=== PATIENT | female | born 1980 | race Caucasian/White ===

== ENCOUNTER 2023-08-30 21:06 | Outpatient (REF) | payer OTHER, SELFPAY ==
[2023-09-03 13:08] LABS: Age Gdln ACOG Testing Note (.); HPV Aptima Negative (Negative); IGP, Aptima HPV, rfx 16/18,45 Note (.)
== END 2023-08-30 21:07 | disposition home or self-care (01) ==
LOC: LAB 21:06
PROVIDERS: Visit Provider Obstetrics & Gynecology
DX: Z12.4 Encounter for screening for malignant neoplasm of cervix (principal)
CPT/HCPCS: 87624; G0145

== ENCOUNTER 2024-09-11 19:29 | Outpatient (REF) | payer OTHER, SELFPAY | END 2024-09-11 19:30 | disposition home or self-care (01) | LOC: LAB 19:29 | PROVIDERS: Visit Provider Obstetrics & Gynecology | DX: Z01.419 Encounter for gynecological examination (general) (routine) without abnormal findings (principal) | CPT/HCPCS: 87624; 88175 ==

== ENCOUNTER 2025-09-12 20:24 | Outpatient (REF) | payer OTHER, SELFPAY ==
--- OUTSIDE RECORDS SUMMARY | 2025-09-12 16:00 | XMS_ITS | Encounter Summary ---
Author Organization [facility] Address [address] [place] [address] Care Team Providers Care Forensic Scientist Name Role Phone Donny Hollingsworth MD Primary Care Provider [phone] Reason for Visit * ReasonCommentsWell Women Visit Encounter Details DateTypeDepartmentCare Team (Latest Contact Info)Dwzgyyekjfs36/22/2025 4:00 PM EDTOffice Visit [facility] [address] [place] [address] Dyllan Scott DO [address] [facility] [address] [place] Pearson, [facility]11 Well woman exam with routine gynecological exam; Breast cancer screening by mammogram Social History Tobacco UseTypesPacks/DayYears UsedDateSmoking Tobacco: FormerCigarettes1.520 Started: 10/02/1999Smokeless Tobacco: NeverAlcohol UseStandard Drinks/Week CommentsNot Currently0 (1 standard drink = 0.6 oz pure alcohol)B1300 Health LiteracyAnswerDate RecordedHow often do you need to have someone help you when you read instructions, pamphlets, or other written material from your doctor or pharmacy?Never03/09/2025Humiliation, Afraid, Rape, and Kick questionnaireAnswer Date RecordedWithin the last year, have you been afraid of your partner or ex-partner?No03/09/2025Within the last year, have you been humiliated or emotionally abused in other ways by your partner or ex-partner?No03/09/2025 Within the last year, have you been kicked, hit, slapped, or otherwise physically hurt by your partner or ex-partner?No03/09/2025Within the last year, have you been raped or forced to have any kind of sexual activity by your part ner or ex-partner?No03/09/2025Social Connection and Isolation PanelAnswerDate RecordedIn a typical week, how many times do you talk on the phone with family, friends, or neighbors?Never03/09/2025How often do you get together with friends or relatives?Never03/09/2025How often do you attend denominational or mormon services?1 to 4 times per year03/09/2025Do you belong to any clubs or organizations such as denominational groups, unions, fraternal or athletic groups, or school groups?Yes03/09/2025How often do you attend meetings of the clubs or organizations you belong to?1 to 4 times per year03/09/2025re you , , , , never , or living with a partner?Never nspujmo4503/09/2025UDIT-CAnswerDate RecordedQ1: How often do you have a drink containing alcohol?Never03/09/2025Q2: How many drinks containing alcohol do you have on a typical day when you are drinking?Patient does not drink03/09/2025Q3: How often do you have six or more drinks on one occasion?Never03/09/2025Overall Financial Resource Strain (CARDIA)AnswerDate RecordedHow hard is it for you to pay for the very basics like food, housing, medical care, and heating?Somewhat hard03/09/2025PHQ-2AnswerDate RecordedPatient Health Questionnaire-2 Score0 03/14/2025[facility] [place] of Occupational Health - Occupational Stress QuestionnaireAnswerDate RecordedDo you feel stress - tense, restless, nervous, or anxious, or unable to sleep at night because yourmind is troubled all the time - these days?Not at all03/09/2025Exercise Vital SignAnswerDate RecordedOn average, how many days per week do you engage in moderate to strenuous exercise (like a brisk walk)?1 day03/09/2025On average, how many minutes do you engage in exercise at this level?40 min03/09/2025Hunger Vital SignAnswerDate Recorded Within the past 12 months, you worried that your food would run out before you got the money to buymore.Never true03/09/2025Within the past 12 months, the food you bought just didn't last and you didn't have money to get more.Never true 03/09/2025PRAPARE - TransportationAnswerDate RecordedIn the past 12 months, has lack of transportation kept you from medical appointments or from getting medications?No03/09/2025In the past 12 months, has lack of transportation kept you from meetings, work, or from getting things needed for daily living?No 03/09/2025Housing Stability Vital SignAnswerDate RecordedIn the last 12 months, was there a time when you were not able to pay the mortgage or rent on time?Yes 12/20/2023In the last 12 months, how many places have you lived?In the last 12 months, was there a time when you did not have a steady place to sleep or slept in [facility] (including now)?No12/20/2023Housing Stability Vital SignAnswerDate RecordedIn the last 12 months, was there a time when you were not able to pay the mortgage or rent on time?Yes03/09/2025In the past 12 months, how many times have you moved where you were living?t any time in the past 12 months, were you homeless or living in a prison (including now)?No 03/09/2025CommentsNoSex and Gender InformationValueDate RecordedSex Assigned at AwxctFiwmxa77/31/2023 3:41 PM EDTLegal FazLhqkdn42/15/2023 6:36 PM EDTGender DhvhfscdKuupcj11/31/2023 3:41 PM EDTSexual OrientationNot on file documented as of this encounter Last Filed Vital Signs Vital SignReadingTime TakenCommentsBlood Ivfxnuia686/7009/12/2025 4:28 PM EDT Pulse--Temperature--Respiratory Rate--Oxygen Saturation--Inhaled Oxygen Concentration--Xfgjvb72.9 kg (171 lb 12.8 oz)09/12/2025 4:28 PM EDTHeight--Body Mass Index28.5909/ 3:40 PM EDTdocumented in this encounter Plan of Treatment DateTypeDepartmentCare Team (Latest Contact Info)Tettmyqmwzx15/18/2025 3:40 PM ESTOffice Visit [facility] [address] [facility] [address] [place] [address] Rl Thomas MD [address] [facility] [address] [place] [address] 09/18/2026 4:00 PM EDTProcedure Visit [facility] [address] [facility] [place] [address] Dyllan Scott DO [address] [facility] [place] [address] NameTypePriorityAssociated DiagnosesOrder ScheduleBilateral screening mammogram ImagingRoutine Breast cancer screening by mammogram Expected: 09/12/2025 (Approximate), Expires: 11/12/2026THIN PREP TIS PAP AND HR HPV DNAPathology and CytologyRoutine Well woman exam with routine gynecological exam Ordered: 09/12/2025documented as of this encounter Visit Diagnoses Diagnosis Well woman exam with routine gynecological exam Routine gynecological examination Breast cancer screening by mammogram documented in this encounter Care Teams Team MemberRelationshipSpecialtyStart DateEnd Date Donny Hollingsworth MD [address] [facility] [address] [place] [address] PCP - GeneralInternal Medicine03/30/23documented as of this encounter
--- OUTSIDE RECORDS SUMMARY | 2025-09-12 20:27 | XMS_ITS | Clinical Summary ---
Author Organization [facility] Address [address] [place] [address] Care Team Providers Care Network Professional Name Role Phone Donny Hollingsworth MD Primary Care Provider [phone] Allergies Active AllergyReactionsCriticalityNoted DateCommentsBiotinGI intolerance 05/17/2023 Other Reaction(s): Unknown Dwixyycach89/26/2023 Other Reaction(s): HIVES Medications MedicationSigDispense QuantityRefillsLast FilledStart DateEnd DateStatus cyanocobalamin (Vitamin B-12) 1000 MCG tablet every 12 (twelve) hours.Active Levonorgestrel (Mirena, 52 MG,) 20 MCG/DAY intrauterine device as directed IntrauterineActive saccharomyces boulardii (Florastor) 250 MG capsule Take 250 mg by mouth in the morning and 250 mg before bedtime.Active dexAMETHasone (Decadron) 2 MG tablet Indications:Intractable migraine with aura with status smpkjzkbqey1at 3 pills po X3 days,2 pills po daily X3 days , then 1 pill po daily X3 days then stop 9 days 18 pills 18 tablet ctive LORazepam (Ativan) 0.5 MG tablet Indications:Acute internal derangement of knee, rightTake 1 tablet (0.5 mg) by mouth See administration instructions for 10 days 1 by mouth 1 hour priorto MRI, may repeat X 1 dose 2 tablet 01/05/2024ctive levothyroxine (Synthroid, Levoxyl) 25 MCG tablet Indications:Hypothyroidism, unspecifiedTAKE 1 TABLET BY MOUTH DAILY 100 tablet ctive levothyroxine (Synthroid, Levoxyl) 200 MCG tablet Indications:Hypothyroidism, unspecifiedTAKE 1 TABLET BY MOUTH DAILY 100 tablet ctive Ubrogepant (Ubrelvy) 100 MG tablet Indications:Chronic migraine without aura, not intractable, without status migrainosusTake 100 mg by mouth 1 (one) time if needed (at the onset of migraine) MAY TAKE SECOND DOSE AT LEAST 2 HOURS AFTER FIRST DOSE NEEDED AT ONSET OF MIGRAINE. MAX 200MG/DAY 48 tablet 6Active tiZANidine (Zanaflex) 4 MG tablet Indications:Chronic migraine without aura, not intractable, without status migrainosusTAKE 2 TABLETS BY MOUTH AT BEDTIME 180 tablet 5Active Atogepant (Qulipta) 60 MG tablet Indications:Chronic migraine without aura, not intractable, without status migrainosusTake 1 tablet by mouth Daily 90 tablet ctive hydrocortisone (Anusol-HC) 2.5 % rectal cream Indications:Bleeding hemorrhoidInsert into the rectum 4 (four) times a day as needed for hemorrhoids (rectal discomfort) Apply to affected areas 30 g ctive topiramate (Topamax) 200 MG tablet Indications:Chronic migraine without aura, not intractable, without status migrainosusTake 1 tablet (200 mg) by mouth in the morning and 1 tablet (200 mg) before bedtime. 90 tablet 1105Active meloxicam (Mobic) 15 MG tablet Indications:Chronic migraine without aura, not intractable, without status migrainosusTake 1 tablet (15 mg) by mouth Daily 90 tablet 506Active dicyclomine (Bentyl) 20 MG tablet Indications:Irritable bowel syndrome with diarrheaTake 1 tablet (20 mg) by mouth every 6 (six) hours during the day 120 tablet 5Active Active Problems ProblemNoted DateDiagnosed ZqtcLsqwbdjf41/29/2023Muscle spasm08/20/2023cquired glskufpculsxmf04/26/2023cute confusional titnmgpl20/26/2023Migraine with aura 05/17/20232039Vrescc26/26/2023enign essential cvcrfjbcfgauf24/26/2023ile reflux lpbjhrlki92/26/2023rachial plexus bhrebbaibx71/26/2023hronic migraine without aura, not intractable, without status eafugtjymqh18/26/2023arpal tunnel syndrome of right wrist05/17/2023ifficulty in walking, not elsewhere classified 05/17/2023isturbance of skin /26/2023iverticulosis of colon 05/17/20235691Ktbyqgh57/26/2023Hashimoto's fraofvyqhbc05/26/2023Hiatal hernia 05/17/2023Irritable bowel syndrome with rnhqwyvn81/26/2023Mild intermittent asthma without /26/2023Mononeuropathy of right lower extremity 05/17/2023Morning xqgwvrus65/26/3371Hmknsod54/26/2023Other specific joint derangements of right foot, not elsewhere ncbaytgnra21/26/2023ain in right arm 05/17/20231388Wxvuhlg12/26/2023 Encounters DateTypeDepartmentCare YlwgXkxqqtyrwca69/22/2025 4:00 PM EDTOffice Visit [facility] [address] [facility] [place] [address] Dyllan Scott, Well woman exam with routine gynecological exam; Breast cancer screening by pistvavvq04/22/2025amb flowsheet [facility] [address] [facility] [address] Dyllan Scott, 09/05/20258790Yfdiqk51/15/2025 3:40 PM EDTOffice Visit [facility] [address] [place] [address] Rl Thomas MD Chronic migraine without aura, not intractable, without status migrainosus 08/06/2025Refill [facility] [address] [place] [address] Donny Hollingsworth MD Irritable bowel syndrome with rkxfiqsy37/15/2025amb flowsheet [facility] [address] [place] [address] Rl Thomas MD 08/06/20252445Siuost01/08/6798Eokvlq47/29/2025[facility] [address] [facility] [address] [place] [address] Donny Hollingsworth MD Irritable bowel syndrome with /28/2025Telephone [facility] [address] [facility] [address] [place] [address] Donny Hollingsworth MD from Last 3 Months Immunizations ImmunizationAdministration DatesNext DueInfluenza, injectable, quadrivalent 08/22/2021,08/25/2016Influenza, injectable, quadrivalent, preservative free 09/20/2023,09/04/2022,08/23/2021,09/14/2020,08/25/2016Influenza, seasonal, lmhlsazili85/23/2013Influenza, seasonal, injectable, preservative free10/20/2024 ,01/09/2016Influenza, seasonal, intradermal, preservative free09/20/2017, 10/09/2009 Family History Medical HistoryRelationNameCommentsAccidental deathBrotherStephen TollerDrug abuseBrotherStephen TollerHeart diseaseFatherTom TollerLung cancerFatherTom TollerHypertensionMaternal GrandmotherPatricia BallCancerMotherPatriciaDiabetes MotherPatriciaHeart diseaseMotherPatriciaHyperlipidemiaMotherPatricia HypertensionMotherPatriciaMental illnessMotherPatriciaStrokeMotherPatriciacancer MotherPatriciaMental illnessSiblingRelationNameStatusCommentsBrotherStephen Toller1 brotherFatherTom TollerAliveMaternal GrandmotherPatricia BallMother PatriciaAliveSiblingSister1 sister Social History Tobacco UseTypesPacks/DayYears UsedDateSmoking Tobacco: FormerCigarettes1.520 Started: 10/02/1999Smokeless Tobacco: NeverAlcohol UseStandard Drinks/Week CommentsNot Currently0 (1 standard drink = 0.6 oz pure alcohol)B1300 Health LiteracyAnswerDate RecordedHow often do you need to have someone help you when you read instructions, pamphlets, or other written material from your doctor or pharmacy?Never04/18/2025Humiliation, Afraid, Rape, and Kick questionnaireAnswer Date RecordedWithin [...] friends or relatives?Never03/09/2025How often do you attend restorationism or caodaism services?1 to 4 times per year03/09/2025Do you belong to any clubs or organizations such as restorationism groups, unions, fraternal or athletic groups, or school groups?Yes03/09/2025How often do you attend meetings of the clubs or organizations you belong to?1 to 4 times per year03/09/2025re you , , , , never , or living with a partner?Never aurxrmu3203/09/2025UDIT-CAnswerDate RecordedQ1: How often do you have a [...] and heating?Somewhat hard03/09/2025PHQ-2AnswerDate RecordedPatient Health Questionnaire-2 Score0 03/14/2025[facility] [place] of Occupational Health - Occupational Stress QuestionnaireAnswerDate [...] steady place to sleep or slept in [facility] (including now)?No12/20/2023Housing Stability Vital SignAnswerDate RecordedIn the last 12 months, was there a time when you were not able to pay the mortgage or rent on time?Yes03/09/2025In the past 12 months, how many times have you moved where you were living?t any time in the past 12 months, were you homeless or living in a long-term (including now)?No 03/09/2025CommentsNoSex and Gender InformationValueDate RecordedSex Assigned at XrjtbCxbqxo33/31/2023 3:41 PM EDTLegal GnjYdrmik96/15/2023 6:36 PM EDTGender LdlxsszlDwlcel54/31/2023 3:41 PM EDTSexual OrientationNot on file Last Filed Vital Signs Vital SignReadingTime TakenCommentsBlood Zxsueiru656/7009/12/2025 4:28 PM EDT Liclh9783 8:34 AM EDTTemperature--Respiratory Qfho678808/06/2025 3:40 PM EDTOxygen Nlofkadspa27%08/06/2025 3:40 PM EDTInhaled Oxygen Concentration-- Emclfs11.9 kg (171 lb 12.8 oz)09/12/2025 4:28 PM PQRXuravk080.1 cm (5' 5 ) 08/06/2025 3:40 PM EDTBody Mass Index28.59008/06/2025 3:40 PM EDT Plan of Treatment DateTypeDepartmentCare Team (Latest Contact Info)Zvxprijbeub93/18/2025 3:40 PM ESTOffice Visit [facility] [address] [facility] [place] [address] Rl Thomas MD [address] [facility] [address] [place] [address] 09/18/2026 4:00 PM EDTProcedure Visit [facility] [address] [facility] [address] Dyllan Scott DO [address] [facility] [place] [address] Health MaintenanceDue DateLast DoneCommentsInfluenza Vaccine (#1)07/23/2025 10/20/2024, 09/20/2023, 09/04/2022, Additional history fujfnhThoompzbr81/25/2026 03/16/2025, 01/12/2024HPV/Qoxyaf6508/24/2027Cervical Cancer Qdmrytytf08/21/2027Pap Smear, 08/30/2023, 08/24/2022 Procedures Procedure NamePriorityDate/TimeAssociated DiagnosisCommentsBI MAMMOGRAM SCREENING TOMOSYNTHESIS PPGQWHZIETchquqa60/25/2025 2:48 PM EDT Encounter for screening mammogram for breast cancer PAP ASBMOXhklmgs88/21/2024 12:00 AM EDTfrom Last 3 Months or Most Recently Relevant to Health Maintenance Results * Bilateral screening mammogram with tomosynthesis (03/16/2025 2:48 PM EDT) Anatomical RegionLateralityModalityBreastBilateralMammographySpecimen (Source) Anatomical Location / LateralityCollection Method / VolumeCollection Time Received Time03/18/2025 9:41 AM EDT Impressions 03/18/2025 9:47 AM EDT Impression: No specific evidence of malignancy seen in either breast. BIRADS 2 - Benign Findings DENSITY: There are scattered areas of fibroglandular density. FOLLOW-UP: Routine Screening Mammogram ELECTRONICALLY SIGNED BY: Devonte Miguel M.D. Narrative 03/18/2025 9:47 AM EDT Examination: BI MAMMOGRAM SCREENING TOMOSYNTHESIS BILATERAL Clinical History: screening Technique: Screening digital mammography study of both breasts was performed with 2-D and 3-D tomosynthesis imaging. Study was compared to the prior exam dated 01/12/2024. Findings: There is no evidence of interval dominant spiculated mass, grouped microcalcifications, or skin thickening which would be suggestive of malignancy. ?? A few benign-appearing calcifications are seen on the left. Procedure Note Devonte Miguel MD - 03/18/2025 Examination: BI MAMMOGRAM SCREENING TOMOSYNTHESIS BILATERAL Clinical History: screening Technique: Screening digital mammography study of both breasts wasperformed with 2-D and 3-D tomosynthesis imaging. Study was compared tothe prior exam dated 01/12/2024. Findings: There is no evidence of interval dominant spiculated mass,grouped microcalcifications, or skin thickening which would be suggestiveof malignancy. A few benign-appearing calcifications are seen on the left. IMPRESSION: Impression: No specific evidence of malignancy seen in either breast. BIRADS 2 - Benign Findings DENSITY: There are scattered areas of fibroglandular density. FOLLOW-UP: Routine Screening Mammogram ELECTRONICALLY SIGNED BY: Devonte Miguel M.D. Authorizing ProviderResult TypeResult StatusDaalondra Hollingsworth MDIMG BI PROCEDURES Final Result * Pap Smear (09/11/2024 12:00 AM EDT)Specimen (Source)Anatomical Location / LateralityCollection Method / VolumeCollection TimeReceived TimeSwabCervical swab / Unknown Narrative Authorizing ProviderResult TypeResult StatusFazio Nurse [facility] CYTOLOGY ORDERABLESFinal ResultPerforming OrganizationAddressCity/State/ZIP CodePhone Number EXTERNAL LAB from Last 3 Months or Most Recently Relevant to Health Maintenance Insurance Care Teams Team MemberRelationshipSpecialtyStart DateEnd Date Donny Hollingsworth MD [address] [address] PCP - GeneralInternal Medicine03/30/23
--- OUTSIDE RECORDS SUMMARY | 2025-09-12 20:27 | XMS_ITS | Encounter Summary ---
Author Organization [facility] Address [address] [place] [address] Care Team Providers Care Pipe Turner Name Role Phone Donny Hollingsworth MD Primary Care Provider [phone] Encounter Details DateTypeDepartmentCare Team (Latest Contact Info)Qwxeiewtmgu94/15/2025Travel Social History Tobacco UseTypesPacks/DayYears UsedDateSmoking Tobacco: FormerCigarettes1.520 [...] friends or relatives?Never03/09/2025How often do you attend jewish or spiritism services?1 to 4 times per year03/09/2025Do you belong to any clubs or organizations such as jewish groups, unions, fraternal or athletic groups, or school groups?Yes03/09/2025How often do you attend meetings of the clubs or organizations you belong to?1 to 4 times per year03/09/2025re you , , , , never , or living with a partner?Never dgtemmu2603/09/2025UDIT-CAnswerDate RecordedQ1: How often do you have a [...] and heating?Somewhat hard03/09/2025PHQ-2AnswerDate RecordedPatient Health Questionnaire-2 Score0 03/14/2025[facility] [place] of Occupational Health - Occupational Stress QuestionnaireAnswerDate [...] steady place to sleep or slept in [place] (including now)?No12/20/2023Housing Stability Vital SignAnswerDate RecordedIn the last 12 months, was there a time when you were not able to pay the mortgage or rent on time?Yes03/09/2025In the past 12 months, how many times have you moved where you were living?t any time in the past 12 months, were you homeless or living in a detention (including now)?No 03/09/2025CommentsNoSex and Gender InformationValueDate RecordedSex Assigned at FhmsgPombmv59/31/2023 3:41 PM EDTLegal KlcCobeyw38/15/2023 6:36 PM EDTGender WaodifsfGnqeqk28/31/2023 3:41 PM EDTSexual OrientationNot on file documented as of this encounter Plan of Treatment DateTypeDepartmentCare Team (Latest Contact Info)Utnfccalltf64/18/2025 3:40 PM ESTOffice Visit [facility] [address] [place] [address] Rl Thomas MD [address] [facility] [address] [facility] [place] [address] 09/18/2026 4:00 PM EDTProcedure Visit [facility] [address] [facility] [place] [address] Dyllan Scott, [address] [facility] [place] [address] documented as of this encounter Visit Diagnoses Not on filedocumented in this encounter Care Teams Team MemberRelationshipSpecialtyStart DateEnd Date Donny Hollingsworth MD [address] [address] PCP - GeneralInternal Medicine03/30/23documented as of this encounter
--- OUTSIDE RECORDS SUMMARY | 2025-09-12 20:27 | XMS_ITS | Encounter Summary ---
Author Organization [facility] Address [address] [place] [address] Care Team Providers Care Sheriffs Detective Name Role Phone Donny Hollingsworth MD Primary Care Provider [phone] Encounter Details DateTypeDepartmentCare Team (Latest Contact Info)Xucmszfvuwq30/22/2025amboo flowsheet [facility] [address] [place] [address] Dyllan Scott DO [address] [facility] [address] [place] [place], [facility] Social History Tobacco UseTypesPacks/DayYears UsedDateSmoking Tobacco: FormerCigarettes1.520 [...] friends or relatives?Never03/09/2025How often do you attend oriental orthodox or yazdanism services?1 to 4 times per year03/09/2025Do you belong to any clubs or organizations such as oriental orthodox groups, unions, [employer] or athletic groups, or school groups?Yes03/09/2025How often do you attend meetings of the clubs or organizations you belong to?1 to 4 times per year03/09/2025re you , , , , never , or living with a partner?Never akiexul7003/09/2025UDIT-CAnswerDate RecordedQ1: How often do you have a [...] and heating?Somewhat hard03/09/2025PHQ-2AnswerDate RecordedPatient Health Questionnaire-2 Score0 03/14/2025[facility] - Occupational Stress QuestionnaireAnswerDate [...] steady place to sleep or slept in [facility] (including now)?No12/20/2023Housing Stability Vital SignAnswerDate RecordedIn the last 12 months, was there a time when you were not able to pay the mortgage or rent on time?Yes03/09/2025In the past 12 months, how many times have you moved where you were living?t any time in the past 12 months, were you homeless or living in a penitentiary (including now)?No 03/09/2025CommentsNoSex and Gender InformationValueDate RecordedSex Assigned at QmlchSzhmrb81/31/2023 3:41 PM EDTLegal BjkPdnqgx48/15/2023 6:36 PM EDTGender TxlxvdwhJtupzr70/31/2023 3:41 PM EDTSexual OrientationNot on file documented as of this encounter Plan of Treatment DateTypeDepartmentCare Team (Latest Contact Info)Oypckctdlin61/18/2025 3:40 PM ESTOffice Visit [facility] [address] [place] [address] Rl Thomas MD [address] [facility] [address] [place] [id number] 09/18/2026 4:00 PM EDTProcedure Visit [facility] [address] [facility] [place] [address] Dyllan Scott DO [address] [facility] [place] [address] documented as of this encounter Visit Diagnoses Not on filedocumented in this encounter Care Teams Team MemberRelationshipSpecialtyStart DateEnd Date Donny Hollingsworth MD [address] [facility] [address] [place] [address] PCP - GeneralInternal Medicine03/30/23documented as of this encounter
--- OUTSIDE RECORDS SUMMARY | 2025-09-12 20:27 | XMS_ITS | CCD ---
Author Organization [facility] Care Team Providers Care Dashboard Developer Name Role Phone DR ANKITA SCOTT Admitting Unavailable DR ANKITA SCOTT Attending Unavailable DR ANKITA SCOTT Consulting Unavailable Donny Hollingsworth MD Primary Care Provider ROSENDA PALOMINO Attending Unavailable DONNY HOLLINGSWORTH Attending Unavailable ANKITA SCOTT Attending Unavailable EMILY THOMAS Attending Unavailable DONNY HOLLINGSWORTH Referring Unavailable EMILY THOMAS Attending Unavailable Allergies Allergy ClassificationReported Allergen(s)Allergy TypeDate of OnsetReaction(s) Facility (1 source)ColestipolDrug Tftbccu88-76-2397OozThe [facility] (1 source)IbuprofenDrug Ytwutfz09-47-6098AabThe [facility] (3 sources)Acetaminophen / CaffeineDrug Ztyraao62-39-8954[facility] (20 sources)BiotinDrug Ceuvtng55-24-0428TB intoleranceLake Regional Health System (20 sources)ColestipolDrug Ysrxoyb22-31-3266UV[facility] (3 sources)IbuprofenDrug Xuosuaf28-81-9835TH[facility] Medications Current Medications MedicationDrug Class(es)DatesSig (Normalized)Sig (Original)Atogepant (Qulipta) 60 MG tablet (9 sources)Start: 02-02-2025 End: 58-56-5320wqum 1 tablet by mouth once dailyAtogepant (Qulipta) 60 MG tablet Indications: Chronic migraine without aura, not intractable, without status migrainosus Take 1 tablet by mouth Daily 90 tablet 2 02/02/2025 02/02/2026 ActiveStart: 02-02-2025 End: 92-03-1627gios 1 tablet by mouth once dailyAtogepant (Qulipta) 60 MG tablet Indications: Chronic migraine without aura, not intractable, without status migrainosus (CMS/HCC) Take 1 tablet by mouth Daily 90 tablet 2 02/02/2025 02/02/2026 Activedexamethasone 2 mg oral tablet (19 sources)CorticosteroidStart: 12-15-2023 End: 70-41-4446srxIRNWDxfkyt (Decadron) 2 MG tablet Indications: Intractable migraine with aura with status migrainosus 2mg 3 pills po X3 days,2 pills po daily X3 days , then 1 pill po daily X3 days then stop 9 days 18 pills 18 tablet 1 12/15/2023 Activedicyclomine hydrochloride 20 mg oral tablet (20 sources)AnticholinergicStart: 07-20-2025 End: 86-34-3173uwxr 1 tablet by mouth every six hoursdicyclomine (Bentyl) 20 MG tablet Indications: Irritable bowel syndrome with diarrhea Take 1 tablet(20 mg) by mouth every 6 (six) hours during the day 120 tablet 3 08/06/2025 ActiveStart: 83-82-9314kurf 1 tablet by mouth every six hoursdicyclomine (Bentyl) 20 MG tablet Indications: Irritable bowel syndrome with diarrhea Take 1 tablet(20 mg) by mouth every 6 (six) hours during the day 42 tablet 11 03/14/2025 ActiveStart: 02-12-2025 End: 07-92-3702ykdq 1 tablet by mouth three times dailydicyclomine (Bentyl) 20 MG tablet Indications: Irritable bowel syndrome with diarrhea TAKE 1 TABLETBY MOUTH THREE TIMES DAILY 42 tablet 02/12/2025 03/14/2025 Discontinued (Reorder) Start: 07-19-2023 End: 97-81-1344syxp 1 tablet by mouth in the morning, then take 1 tablet by mouth in the evening, then take 1 tablet by mouth at bedtimedicyclomine (Bentyl) 20 MG tablet Indications: Irritable bowel syndrome with diarrhea Take 1 tablet (20 mg) by mouth in the morning and 1 tablet (20 mg) in the evening and 1 tablet (20 mg) before bedtime. 270 tablet 3 12/23/2023 Activeeletriptan 40 mg oral tablet (12 sources)Serotonin-1b and Serotonin-1d Receptor AgonistStart: 06-15-2024 eletriptan (Relpax) 40 MG tablet Indications: Acute sinusitis, recurrence not specified, unspecified location , Chronic migraine without aura, not intractable, without status migrainosus (CMS/HCC) Take 1 tablet (40 mg) by mouth See administration instructions TAKE 1 TABLET BY MOUTH at onset OF migraine, may repeat once after 2 HOURS (max TWICE DAILY, TWICE A WEEK) MUST LAST 30 DAYS 6 tablet 3 06/15/2024 ActiveStart: 04-09-2023 End: 51-17-2046frwubnvxcc (Relpax) 40 MG tablet Indications: Chronic migraine without aura, not intractable, without status migrainosus (CMS/HCC) Take 1 tablet (40 mg) by mouth See administration instructions TAKE 1 TABLET BY MOUTH at onset OF migraine, may repeat once after 2 HOURS (max TWICE DAILY, TWICE A WEEK) MUST LAST 30 DAYS 6 tablet 3 12/21/2023 Activeerythromycin ethylsuccinate 400 mg oral tablet (2 sources)Macrolide, Macrolide AntimicrobialStart: 12-23-2023 End: 40-54-2514smrqdyimwehh ethylsuccinate (E.E.S.) 400 MG tablet Indications: Acute sinusitis, recurrence not specified, unspecified location Take 1 tablet (400 mg) by mouth in the morning and 1 tablet (400 mg) atnoon and 1 tablet (400 mg) in the evening and 1 tablet (400 mg) before bedtime. Do all this for 10 d ays. 40 tablet 0 12/23/2023 01/02/2024 Activehydrocortisone 25 mg/ml rectal cream (4 sources)CorticosteroidStart: 07-19-2025 End: 50-08-8072zaeblokvmystik (Anusol-HC) 2.5 % rectal cream Indications: Bleeding hemorrhoid Insert into the rectum 4 (four) times a day as needed for hemorrhoids (rectal discomfort) Apply to affected areas 30 g 07/19/2025 07/19/2026 Activelevonorgestrel 0.500586 mg/hr intrauterine system (20 sources)Progestin, Progestin-containing Intrauterine DeviceLevonorgestrel (Mirena, 52 MG,) 20 MCG/DAY intrauterine device as directed Intrauterine Active levothyroxine sodium 0.2 mg oral tablet (20 sources)l-ThyroxineStart: 10-05-2023 End: 92-91-7824nvnp 1 tablet by mouth once dailylevothyroxine (Synthroid, Levoxyl) 200 MCG tablet Indications: Hypothyroidism, unspecified TAKE 1 TABLET BY MOUTH DAILY 100 tablet 3 10/09/2024 ActiveStart: 10-05-2023 End: 93-17-5894gtie 1 tablet by mouth once dailylevothyroxine (Synthroid, Levoxyl) 25 MCG tablet Indications: Hypothyroidism, unspecified TAKE 1 TABLET BY MOUTH DAILY 100 tablet 3 10/09/2024 ActiveLORazepam 0.5 mg oral tablet (16 sources)BenzodiazepineStart: 61-57-2082HVOqrsums (Ativan) 0.5 MG tablet Indications: Acute internal derangement of knee, right Take 1 tablet (0.5 mg) by mouth See administration instructions for 10 days 1 by mouth 1 hour prior to MRI, mayrepeat X 1 dose 2 tablet 01/05/2024 Activemeloxicam 15 mg oral tablet (17 sources)Nonsteroidal Anti-inflammatory DrugStart: 02-02-2025 End: 28-84-6456wlzf 1 tablet by mouth once dailymeloxicam (Mobic) 15 MG tablet Indications: Chronic migraine without aura, not intractable, withoutstatus migrainosus Take 1 tablet (15 mg) by mouth Daily 90 tablet 3 08/06/2025 08/06/2026 ActiveStart: 16-77-2862ktza 1 tablet by mouth once dailymeloxicam (Mobic) 15 MG tablet Indications: Difficulty in walking, not elsewhere classified , Disturbance of skin sensation TAKE 1 TABLET BY MOUTH DAILY 30 tablet 2 01/13/2025 ActiveStart: 10-03-2024 End: 85-21-6226tbbm 1 tablet by mouth once dailymeloxicam (Mobic) 15 MG tablet Indications: Difficulty in walking, not elsewhere classified , Disturbance of skin sensation TAKE 1 TABLET BY MOUTH DAILY 30 tablet 2 10/03/2024 01/13/2025 DiscontinuedStart: 06-15-2024 End: 02-14-4475qlsr 1 tablet by mouth once dailymeloxicam (Mobic) 15 MG tablet Indications: Difficulty in walking, not elsewhere classified , Disturbance of skin sensation Take 1 tablet (15 mg) by mouth Daily 30 tablet 2 06/15/2024 09/13/2024 ActiveQulipta 60 MG tablet (7 sources)Start: 09-27-2024 End: 94-26-3333znsz 1 tablet by mouth once dailyQulipta 60 MG tablet Indications: Acute sinusitis, recurrence not specified, unspecified location , Chronic migraine without aura, not intractable, without status migrainosus (CMS/HCC) TAKE 1 TABLET BY MOUTH DAILY 90 tablet 1 09/27/2024 12/26/2024 Active take 1 tablet by mouth in the morningQulipta 60 MG tablet Take 1 tablet by mouth in the morning. 0 Activesaccharomyces boulardii 250 mg oral capsule (20 sources)take 1 capsule by mouth in the morningsaccharomyces boulardii (Florastor) 250 MG capsule Take 250 mg by mouth in the morning and 250 mg before bedtime. ActivetiZANidine 4 mg oral tablet (20 sources)Central alpha-2 Adrenergic AgonistStart: 27-86-3139xjwp 2 tablets by mouth at bedtimetiZANidine (Zanaflex) 4 MG tablet Indications: Chronic migraine without aura, not intractable, without status migrainosus TAKE 2 TABLETS BY MOUTH AT BEDTIME 180 tablet 3 02/02/2025 ActiveStart: 45-34-7705skxo 2 tablets by mouth at bedtimetiZANidine (Zanaflex) 4 MG tablet Indications: Insomnia, unspecified type , Muscle spasm , Intractable migraine with aura with status migrainosus (CMS/HCC) TAKE 2 TABLETS BY MOUTH AT BEDTIME 60 tablet 2 01/13/2025 ActiveStart: 06-15-2024 End: 74-02-9292npgw 2 tablets by mouth at bedtimetiZANidine (Zanaflex) 4 MG tablet Indications: Insomnia, unspecified type , Muscle spasm , Intractable migraine with aura with status migrainosus (CMS/HCC) TAKE 2 TABLETS BY MOUTH AT BEDTIME 60 tablet 2 10/03/2024 01/13/2025 DiscontinuedStart: 08-19-2023 End: 19-87-2508zsnk 1 tablet by mouth at bedtimetiZANidine (Zanaflex) 4 MG tablet Indications: Insomnia, unspecified type , Muscle spasm , Intractable migraine with aura with status migrainosus (CMS/HCC) Take 1 tablet (4 mg) by mouth at bedtime. 30 tablet 11 08/19/2023 08/18/2024 Activetopiramate 200 mg oral tablet (20 sources)Start: 04-02-2025 End: 70-53-4532jpsa 1 tablet by mouth in the morningtopiramate (Topamax) 200 MG tablet Indications: Chronic migraine without aura, not intractable, without status migrainosus Take 1 tablet (200 mg) by mouth in the morning and 1 tablet (200 mg) before bedtime. 90 tablet 11 08/06/2025 ActiveStart: 06-16-2023 End: 21-89-9765gexe 1 tablet by mouth in the morning, then take 2 tablets by mouth at bedtimetopiramate (Topamax) 200 MG tablet Indications: Chronic migraine without aura, not intractable, without status migrainosus (CMS/HCC) TAKE 1 TABLET BY MOUTH IN THE MORNING and TAKE 2 TABLETS BY MOUTH AT BEDTIME 90 tablet 11 06/02/2024 ActiveStart: 82-46-8414ohnb 2 tablets by mouth at bedtime topiramate (Topamax) 200 MG tablet Take 200 mg by mouth See administration instructions. TAKE 1 TABLET BY MOUTH IN THE MORNING, then TAKE 2 TABLETS AT BEDTIME 04/18/2023 Activeubrogepant 100 mg oral tablet (20 sources)Start: 02-02-2025 End: 33-99-7596Pylwbpeylq (Ubrelvy) 100 MG tablet Indications: Chronic migraine without aura, not intractable, without status migrainosus Take 100 mg by mouth 1 (one) time if needed (at the onset of migraine) MAY TAKE SECOND DOSE AT LEAST 2 HOURS AFTER FIRST DOSE NEEDED AT ONSET OF MIGRAINE. MAX 200MG/DAY 48 tablet 3 02/02/2025 02/02/2026 ActiveStart: 48-21-3188Gynjpwfqct (Ubrelvy) 100 MG tablet Indications: Acute sinusitis, recurrence not specified, unspecified location , Chronic migraine without aura, not intractable, without status migrainosus (CMS/HCC) Take 100 mg by mouth 1 (one) time if needed (at the onset of migraine) for up to 1 dose MAY TAKE SECOND DOSE AT LEAST 2 HOURS AFTER FIRST DOSE NEEDED AT ONSET OF MIGRAINE. MAX 200MG/DAY 16 tablet 11 03/16/2024 ActiveStart: 05-00-5404Uzkdbqr 100 MG tablet See administration instructions. TAKE 1 TABLET BY MOUTH . MAY TAKE SECOND DOSE AT LEAST 2 HOURS AFTER FIRST DOSE NEEDED AT ONSET OF MIGRAINE. MAX 200MG/DAY 0 03/17/2023 Activevitamin b12 1 mg oral tablet (20 sources)Vitamin M95idtskdlswmkrci (Vitamin B-12) 1000 MCG tablet every 12 (twelve) hours. Active Problems Active Problems Problem ClassificationProblemDateDocumented DateEpisodic/ChronicAsthma (20 sources)Asthma; Translations: [Unspecified asthma, uncomplicated]Onset: 786427-47-3404UckbwhjCjgtxgfzlhkyvd and diverticulitis (20 sources)Diverticulosis of colon; Translations: [Diverticulosis of large intestine without perforation or abscess without bleeding]Onset: 05-17-2023 01-71-5401ImibybpTkwntvdz; including migraine (20 sources)Acute confusional migraine; Translations: [Migraine, unspecified, not intractable, without status migrainosus]Onset: hronic Immunizations and screening for infectious disease (1 source)Encounter for screening for human papillomavirus (HPV); Translations: [ENC SCREENING HUMAN PAPILLOMAVIRUS]Onset: 93-61-8374JoicqccpQpvjw gastrointestinal disorders (20 sources)Irritable bowel syndrome with diarrhea; Translations: [Irritable bowel syndrome with diarrhea]Onset: 293615-41-2567EyefeocOtfih hereditary and degenerative nervous system conditions (20 sources)Blepharospasm; 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]Onset: 05-17-2023 30-85-2353PfggoulSrwqc nervous system disorders (20 sources)Brachial plexus disorder; Translations: [Brachial plexus disorders] Onset: 634508-83-7373UozrzgnPqccw nervous system disorders (20 sources)Carpal tunnel syndrome of right wrist; Translations: [Carpal tunnel syndrome, right upper limb]Onset: 789879-79-3815UisqqhrQzvyf nervous system disorders (20 sources)Difficulty walking; Translations: [Difficulty in walking, not elsewhere classified]Onset: 497643-63-2101IvsvlklDrjxq nervous system disorders (20 sources)Mononeuropathy of lower limb; Translations: [Unspecified mononeuropathy of right lower limb]Onset: 008464-94-1344SjrhkmrSdxse non- traumatic joint disorders (12 sources)Joint derangement; Translations: [Other specific joint derangements of right foot, not elsewhere classified]Onset: 321910-40-1501RyxfapiXykep non-traumatic joint disorders (9 sources)Other specific joint derangements of right foot, not elsewhere classified; Translations: [Other joint derangement, not elsewhere classified, ankle and foot]Onset: 293977-69-8784XyjofroWgghb non-traumatic joint disorders (2 sources)Effusion of right knee joint; Translations: [Effusion, right knee] 11-84-8195LhyiudtkOxygk nutritional; endocrine; and metabolic disorders (20 sources)Obesity; Translations: [Obesity, unspecified]Onset: 05-17-2023 38-93-4926VswdiubJjwxz screening for suspected conditions (not mental disorders or infectious disease) (6 sources)Encounter for screening for malignant neoplasm of cervix; Translations: [Patient encounter status]Onset: 38-96-0284CbzneeqfIsmfh upper respiratory infections (2 sources)Acute sinusitis; Translations: [Acute sinusitis, unspecified] 05-09-6322HuvtqwzeZxzinuv disorders (20 sources)Acquired hypothyroidism; Translations: [Hypothyroidism, unspecified] Onset: hronic Past or Other Problems Problem ClassificationProblemDateDocumented DateEpisodic/ChronicAbdominal hernia (20 sources)Hiatal hernia; Translations: [Diaphragmatic hernia without obstruction or gangrene]Onset: 534649-79-7484LykoogucZkwgdgtqk and duodenitis (20 sources)Bile-induced gastritis; Translations: [Other gastritis without bleeding]Onset: 636581-54-1519FbxrfyfxJlwmjseu; including migraine (20 sources)Morning headache; Translations: [Morning headache]Onset: 05-17-2023 68-52-2148SsdaoqnsUacilnc and fatigue (20 sources)Fatigue; Translations: [Other fatigue]Onset: EpisodicOther connective tissue disease (20 sources)Pain in right arm; Translations: [Pain in right arm]Onset: 072190-26-7932ApydrrewGprga connective tissue disease (20 sources)Spasm; Translations: [Other muscle spasm]Onset: 806881-09-6647 EpisodicOther lower respiratory disease (20 sources)Snoring; Translations: [Snoring]Onset: 651203-26-1747Qrfukmey Other nervous system disorders (20 sources)Skin sensation disturbance; Translations: [Unspecified disturbances of skin sensation]Onset: 507532-11-1917DdqplmemKtvlwaaq codes; unclassified (20 sources)Insomnia; Translations: [Insomnia, unspecified]Onset: 08-20-2023 52-81-6530Jtlemekv Results Test NameValueInterpretationReference RangeFacilityCELIAC DISEASE COMPREHENSIVE PANELon 87-52-9525CIYYEULPWNAYWD A122 mg/xQPqmfbo40-056Aulqn DiagnosticsComment on above:Order Comment: FASTING:NO FASTING: NOPerformed By: #### #### [facility]/[place] [id number] [facility] [address] [place], [place] Driver: Toño Heard M.D.,PhDINTERPRETATIONsee noteNormalQuest DiagnosticsComment on above:Order Comment: FASTING:NO FASTING: NOResult Comment: No serological evidence of celiac disease. tTG IgA may normalize in individuals with celiac disease who maintain a gluten-free diet. Consider HLA DQ2 and DQ8 testing to rule out celiac disease. Celiac disease is extremely rare in the absence of DQ2 or DQ8.Performed By: #### #### [facility]/[place] [id number] [facility] [address] [place], [place] Driver: Toño Heard M.D.,PhDTISSUE TRANSGLUTAMINASE AB, IGA<1.0 Normal<15.0Quest DiagnosticsComment on above:Order Comment: FASTING:NO FASTING: NOResult Comment: Value Interpretation <15.0 Antibody not detected > or = 15.0 Antibody detectedPerformed By: #### #### [facility]/[place] [id number] [facility] [address] [place], [place] Driver: Toño Heard M.D.,PhDCelia panel reflex to titeron 75-30-5936IaT [Mass/Vol]122 mg/dL47 - 310 mg/dLNOIL HealthcareLaboratory comment Swapnil (Report)see noteNOIL HealthcareComment on above:No serological evidence of celiac disease. tTG IgA may normalize in individuals with celiac disease who maintain a gluten-free diet. Consider HLA DQ2 and DQ8 testing to rule out celiac disease. Celiac disease is extremely rare in the absence of DQ2 or DQ8. tTG IgA Qn (S)<1.0NINF - 15.0 U/mLNOKLAHOMA HOSPITAL ASSOCIATION HealthcareComment on above: Value Interpretation <15.0 Antibody not detected > or = 15.0 Antibody detected FASTING:NO FASTING: NOQUESTPerforming Organization Information Site ID: AMD Name: [facility] Address: [address] [place] [address] [place] [address] Director: Toño Heard M.D.,PhDSampson Regional Medical Center MAMMOGRAM SCREENING TOMOSYNTHESIS BILATERALon 10-45-6698VF MAMMOGRAM SCREENING TOMOSYNTHESIS BILATERALThis is a summary report. The complete report is available in the patient's medical record. If you cannot access the medical record, please contact the sending organization for a detailed fax or copy. Examination: BI MAMMOGRAM SCREENING TOMOSYNTHESIS BILATERAL Clinical History: screening Technique: Screening digital mammography study of both breasts was performed with 2-D and 3-D tomosynthesis imaging. Study was compared to the prior exam dated 01/12/2024. Findings: There is no evidence of interval dominant spiculated mass, grouped microcalcifications, or skin thickening which would be suggestive of malignancy. A few benign-appearing calcifications are seen on the left. IMPRESSION: Impression: No specific evidence of malignancy seen in either breast. BIRADS 2 - Benign Findings DENSITY: There are scattered areas of fibroglandular density. FOLLOW-UP: Routine Screening Mammogram ELECTRONICALLY SIGNED BY: Devonte Miguel M.D.NormalNot AvailableCBC (INCLUDES DIFF/PLT)on 27-30-9974Nuemierhr (Bld) [#/Vol]0 10*3/uLNormal0-200Quest DiagnosticsComment on above:Performed By: #### 64524, 6399, 7600, 899, 91081 #### [facility] of [place] [address] [place] [address] Driver: Sulaiman Funez MDBasophils/100 WBC (Bld)0.0 %NormalQuest DiagnosticsComment on above:Performed By: #### 79220, 6399, 7600, 899, 10808 #### [facility] of [place] [address] [place] [address] Driver: Sulaiman Funez MDEosinophils (Bld) [#/Vol]0.12 10*3/uLNormal 15-500Quest DiagnosticsComment on above:Performed By: #### 59645, 6399, 7600, 899, 30355 #### [facility] of [place] [address] [address] [address] Driver: Sulaiman Funez MDEosinophils/100 WBC (Bld)2.6 %NormalQuest DiagnosticsComment on above:Performed By: #### 28027, 6399, 7600, 899, 12639 #### [facility] of [place] [address] [address] [address] Driver: Sulaiman Funez MDErythrocyte distribution width (RBC) [Ratio] 12.1 %Ooxthp03.0-15.0Quest DiagnosticsComment on above:Performed By: #### 12837, 6399, 7600, 899, 33547 #### [facility] of [place] [address] [place] [employer] Driver: Sulaiman Funez MDHematocrit (Bld) [Volume fraction]42.2 %Normal 35.0-45.0Quest DiagnosticsComment on above:Performed By: #### 86774, 6399, 7600, 899, 23240 #### [facility] of [place] [address] [address] [address] Driver: Sulaiman Funez MDHemoglobin (Bld) [Mass/Vol]14.1 g/dLNormal 11.7-15.5Quest DiagnosticsComment on above:Performed By: #### 26864, 6399, 7600, 899, 98466 #### [facility] of [address], [address] [place] [address] [employer] Driver: Sulaiman Funez MDLymphocytes (Bld) [#/Vol]1.21 10*3/uLNormal 850-3900Quest DiagnosticsComment on above:Performed By: #### 43341, 6399, 7600, 899, 18496 #### [facility] of [address], [address] [place] [address] [employer] Driver: Sulaiman Funez MDLymphocytes/100 WBC (Bld)26.3 %NormalQuest DiagnosticsComment on above:Performed By: #### 13434, 6399, 7600, 899, 18384 #### [facility] of [address], [address] [place] [address] [employer] Driver: Sulaiman Funez MDMCH (RBC) [Entitic mass]30.9 aaCeazva00.0-33.0 [facility] DiagnosticsComment on above:Performed By: #### 73466, 6399, 7600, 899, 32155 #### [facility] of [place] [address] [place] [address] Driver: Sulaiman Funez MDMCHC (RBC) [Mass/Vol]33.4 g/zUVgxbji82.0-36.0 [facility] DiagnosticsComment on above:Result Comment: For adults, a slight decrease in the calculated MCHC value (in the range of 30 to 32 g/dL) is most likely not clinically significant; however, it should be interpreted with caution in correlation with other red cell parameters and the patient's clinical condition.Performed By: #### 46595, 6399, 7600, 899, 05041 #### [facility] of [place] [address] [place] [employer] Driver: Sulaiman Funez MDMCV (RBC) [Entitic vol]92.5 yYCrtiax95.0-100.0 [facility] DiagnosticsComment on above:Performed By: #### 85718, 6399, 7600, 899, 19302 #### [facility] of [address], [address] [place] [address] [employer] Driver: Sulaiman Funez MDMonocytes (Bld) [#/Vol]0.423 10*3/uLNormal 200-950Quest DiagnosticsComment on above:Performed By: #### 16415, 6399, 7600, 899, 30056 #### [facility] of [address], [address] [place] [address] [employer] Driver: Sulaiman Funez MDMonocytes/100 WBC (Bld)9.2 %NormalQuest DiagnosticsComment on above:Performed By: #### 07920, 6399, 7600, 899, 56646 #### [facility] of [address], [address] [place] [address] [employer] Driver: Sulaiman Funez MDNeutrophils (Bld) [#/Vol]2.847 10*3/uLNormal 1500-7800Quest DiagnosticsComment on above:Performed By: #### 20140, 6399, 7600, 899, 50562 #### [facility] of [address], [address] [place] [address] [employer] Driver: Sulaiman Funez MDNeutrophils/100 WBC (Bld)61.9 %NormalQuest DiagnosticsComment on above:Performed By: #### 64085, 6399, 7600, 899, 72977 #### [facility] of [place] [address] [place] [employer] Driver: Sulaiman Funez MDPlatelet mean volume (Bld) [Entitic vol]12.9 fLHigh7.5-12.5Quest DiagnosticsComment on above:Performed By: #### 36280, 6399, 7600, 899, 26768 #### [facility] of [address], [address] [place] [address] [employer] Driver: Sulaiman Funez MDPlatespaulding hospital [facility] ([facility]) [#/Vol]158 10*3/uLNormal 140-400Quest DiagnosticsComment on above:Performed By: #### 53741, 6399, 7600, 899, 24548 #### [facility] of [address], [address] [place] [address] [employer] Driver: Sulaiman Funez MDRBC ([facility]) [#/Vol]4.56 10*6/uLNormal3.80-5.10 [facility] DiagnosticsComment on above:Performed By: #### 87077, 6399, 7600, 899, 82450 #### [facility] of [address], [address] [place] [address] [employer] Driver: Sulaiman Funez MDCUBA MEMORIAL [facility] ([facility]) [#/Vol]4.6 10*3/uLNormal3.8-10.8 [facility] DiagnosticsComment on above:Performed By: #### 35700, 6399, 7600, 899, 04995 #### [facility] of [place] [address] [address] [address] Driver: Sulaiman Funez MDCOMPREHENSIVE METABOLIC PANELon 03-15-2025 Albumin [Mass/Vol]4.4 g/dLNormal3.6-5.1Quest DiagnosticsComment on above: Performed By: #### 36961, 6399, 7600, 899, 95551 #### [facility] of [place] [address] [address] [employer] Driver: Sulaiman Funez MDAlbumin/Globulin [Mass ratio]1.9 {ratio}Normal 1.0-2.5Quest DiagnosticsComment on above:Performed By: #### 21466, 6399, 7600, 899, 97751 #### [facility] of [place] [address] [address] [address] Driver: Sulaiman Funez MDALP [Catalytic activity/Vol]95 U/YIjojvg69-092 [facility] DiagnosticsComment on above:Performed By: #### 61156, 6399, 7600, 899, 88152 #### [facility] of [address], [address] [place], [place] [address] [address] Driver: Sulaiman Funez MDALT [Catalytic activity/Vol]16 U/LNormal6-29 Quest DiagnosticsComment on above:Performed By: #### 73463, 6399, 7600, 89, 45815 #### [facility] of [address], [address] [place] [address] Fence [employer] Driver: Sulaiman Funez MDAST [Catalytic activity/Vol]13 U/YDfazpa14-84 Quest DiagnosticsComment on above:Performed By: #### 84965, 6399, 7600, 899, 80665 #### [facility] of [address], [address] [place] [address] Fence [employer] Driver: Sulaiman Funez MDBilirubin [Mass/Vol]0.4 mg/dLNormal0.2-1.2 Quest DiagnosticsComment on above:Performed By: #### 80238, 6399, 7600, 899, 07934 #### [facility] of [place] [address] [address] Driver: Sulaiman Funez MDCalcium [Mass/Vol]8.9 mg/dLNormal8.6-10.2Quest DiagnosticsComment on above:Performed By: #### 17872, 6399, 7600, 899, 70518 #### [facility] of [place] [address] [address] Driver: Sulaiman Funez MDChloride [Moles/Vol]114 mmol/PFgru00-446Mujab DiagnosticsComment on above:Performed By: #### 04842, 6399, 7600, 899, 42161 #### [facility] of [place] [address] [address] Driver: Sulaiman Funez MDCO2 [Moles/Vol]21 mmol/LQluqog77-80Gtphh DiagnosticsComment on above:Performed By: #### 38194, 6399, 7600, 899, 20392 #### [facility] [place] [address] [address] Driver: Sulaiman LINDSAYreatinine [Mass/Vol]0.78 mg/dLNormal0.50-0.99 Quest DiagnosticsComment on above:Performed By: #### 24987, 6399, 7600, 899, 21808 #### [facility] [place] [address] [address] [address] Driver: Sulaiman Funez MDGFR/1.73 sq M.predicted among non-blacks MDRD (S/P/Bld) [Vol rate/Area]97 mL/min/{1.73_m2}Normal> OR = 60[facility] Comment on above:Performed By: #### 73438, 63, 7600, 89, 27075 #### [facility] [place] [address] [address] Driver: Sulaiman Funez MDGlobulin (S) [Mass/Vol]2.3 g/dLNormal1.9-3.7 Quest DiagnosticsComment on above:Performed By: #### 60695, 63, 7600, 899, 35035 #### [facility] [place] [address] [address] [address] Driver: Sulaiman Funez MDGlucose [Mass/Vol]87 mg/aJQxwkkc75-43Ihtxu DiagnosticsComment on above:Result Comment: Fasting reference intervalPerformed By: #### 86628, 6399, 7600, 899, 71779 #### [facility] [place] [address] [address] [address] Driver: Sulaiman Funez MDPotassium [Moles/Vol]4.3 mmol/LNormal3.5-5.3 Quest DiagnosticsComment on above:Performed By: #### 33026, 6399, 7600, 899, 72253 #### [facility] of [address], [address] [place] [address] [employer] Driver: Sulaiman Funez MDProtein [Mass/Vol]6.7 g/dLNormal6.1-8.1Quest DiagnosticsComment on above:Performed By: #### 41640, 6399, 7600, 899, 98220 #### [facility] of [address], [address] [place] [address] [employer] Driver: Sulaiman Funez MDSodium [Moles/Vol]141 mmol/YXbkhoh407-232Kbfbr DiagnosticsComment on above:Performed By: #### 30171, 6399, 7600, 899, 63188 #### [facility] [address], [address] [place] [address] [employer] Driver: Sulaiman Funez MDUrea nitrogen [Mass/Vol]26 mg/dLHigh7-25Quest DiagnosticsComment on above:Performed By: #### 42359, 6399, 7600, 899, 64479 #### [facility] [address], [address] [place] [address] [employer] Driver: Sulaiman Funez MDUrea nitrogen/Creatinine [Mass ratio]33 mg/mg High6-22Quest DiagnosticsComment on above:Performed By: #### 35132, 6399, 7600, 899, 73053 #### [facility] [place] [address] [address] [address] Driver: Sulaiman Funez MDLIPID PANEL, STANDARD 26-55-7176Ehnsgflqiwc [Mass/Vol]137 mg/dLNormal<200Quest DiagnosticsComment on above:Order Comment: FASTING:YES FASTING: YESPerformed By: #### 09914, 6399, 7600, 899, 15725 #### [facility] of [place] [address] [address] Driver: Sulaiman Funez MDCholesterol in HDL [Mass/Vol]39 mg/dLLow> OR = 50Quest DiagnosticsComment on above:Order Comment: FASTING:YES FASTING: YESPerformed By: #### 20623, 6399, 7600, 899, 33562 #### [facility] [address], [address] [place] [address] [employer] Driver: Sulaiman LINDSAYholesterol in LDL [Mass/Vol]85 mg/dLNormal Quest DiagnosticsComment on above:Order Comment: FASTING:YES FASTING: YESResult Comment: Reference range: <100 Desirable range <100 mg/dL for primary prevention; <70 mg/dL for patients with CHD or diabetic patients with > or = 2 CHD risk factors. LDL-C is now calculated using the Kenny calculation, which is a validated novel method providing better accuracy than the Friedewald equation in the estimation of LDL-C. Irving LEON et al. PAULINA. 2013;310(19): 1650-8014 (http://education.Dataupia/faq/BFS229)Performed By: #### 87510, 6399, 7600, 899, 45539 #### [facility] [address], [address] [place] [address] [employer] Driver: Sulaiman LINDSAYholestjunito.total/Cholesterol in HDL [Mass ratio]3.5 {ratio}Normal<5.0Quest DiagnosticsComment on above:Order Comment: FASTING:YES FASTING: YESPerformed By: #### 81381, 6399, 7600, 899, 17681 #### [facility] [address], [address] [place] [address] [employer] Post Driver: Sulaiman HALE HDL CQMUZHDQKSQ81 mg/dL (calc)Normal<130 Quest DiagnosticsComment on above:Order Comment: FASTING:YES FASTING: YESResult Comment: For patients with diabetes plus 1 major ASCVD risk factor, treating to a non-HDL-C goal of <100 mg/dL (LDL-C of <70 mg/dL) is considered a therapeutic option.Performed By: #### 43754, 6399, 7600, 899, 37805 #### [facility] [place] [address] [address] Driver: Sulaiman Funez MDTriglyceride [Mass/Vol]57 mg/dLNormal<150Quest DiagnosticsComment on above:Order Comment: FASTING:YES FASTING: YESPerformed By: #### 58831, 6399, 7600, 899, 35972 #### [facility] [place] [address] [address] [address] Driver: Sulaiman Funez MDMAGNESIUMon 06-80-2589Jkkbksaya [Mass/Vol]2.2 mg/dLNormal1.5-2.5Quest DiagnosticsComment on above:Performed By: #### 77256, 622 #### [facility] [place] [address] [address] Driver: Sulaiman Funez MDT3, FREE 83-00-3095Ifoy T3 [Mass/Vol]3.8 pg/mLNormal2.3-4.2Quest DiagnosticsComment on above:Performed By: #### 50831, 6399, 7600, 899, 11280 #### [facility] [place] [address] [address] [address] Driver: Sulaiman Funez MDT4, [facility] 09-45-2963Rzov T4 [Mass/Vol]1.2 ng/dLNormal0.8-1.8Quest DiagnosticsComment on above:Performed By: #### 69582, 6399, 7600, 899, 09965 #### [facility] [place] [address] [address] Driver: Sulaiman MARTÍNEZShriners Hospital 46-46-8680CJB Qn0.01 m[IU]/LLowQuest DiagnosticsComment on above:Result Comment: Reference Range > or = 20 Years 0.40-4.50 Ranges First trimester 0.26-2.66 Second trimester 0.55-2.73 Third trimester 0.43-2.91Performed By: #### 90252, 6399, 7600, 899, 96462 #### [facility] [address], [address] [place] [phone] [address] Driver: Sulaiman Funez MDVITAMIN D,25-OH,TOTAL,IAon 84-09-5586LHGVUVY D,25-OH,TOTAL,IA32 ng/xFWttiat74-392Hblml DiagnosticsComment on above:Result Comment: Vitamin D Status 25-OH Vitamin D: Deficiency: <20 ng/mL Insufficiency: 20 - 29 ng/mL Optimal: > or = 30 ng/mL For 25-OH Vitamin D testing on patients on D2-supplementation and patients for whom quantitation of D2 and D3 fractions is required, the QuestAssureD(TM) 25-OH VIT D, (D2,D3), LC/MS/MS is recommended: order code 51482 (patients >2yrs). See Note 1 Note 1 For additional information, please refer to http://education.Dataupia/faq/NZO149 (This link is being provided for informational/ educational purposes only.)Performed By: #### 18467, 622 #### [facility] [address], [address] [place] [phone] Fence [address] Driver: Sulaiman Funez MDIGP,APTIMA HPV,AGE GDLNon 07-45-4845MWH GDLN ACOG TESTINGNote.NOMS HealthcareComment on above:TESTS RESULT FLAG UNITS REF RANGE LAB Clinician Provided Cytology Information Source.............Cervix;Endocervix No. of containers..01 ThinPrep Vial Age Algo ACOG Jannie... 31 FLAG LEGEND: L-Low Normal,H-High Normal,LL-Alert Low,HH-Alert High <-Panic Low,>-Panic High,A-Abnormal,AA-Critical Abnormal Performed at: 01 =[address] [address] Aniyah Zacarias MD, HPV APTIMANegativeNegativeNOMS HealthcareComment on above:This nucleic acid amplification test detects fourteen high- risk HPV types (16,18,31,33,35,39,45,51,52,56,58,59,66,68) without differentiation. Performed at: =[address] [id number] Rpg Programmer Analyst: Aniyah Zacarias MD, Phone: [phone] Performed at: [facility] Lab[address] [id number] Rpg Programmer Analyst: Aniyah Zacarias MD, Phone: [phone] IGP, APTIMA HPV, RFX 16/18,45Note.NOMS HealthcareComment on above:TESTS RESULT FLAG UNITS REF RANGE LAB DIAGNOSIS: 02 NEGATIVE FOR INTRAEPITHELIAL LESION OR MALIGNANCY. Specimen adequacy: 02 Satisfactory for evaluation. Endocervical and/or squamous metaplastic cells (endocervical component) are present. Performed by: 02 Ivan Klein, Animal Physiology Teacher ([facility]) . 02 Note: Note 02 The Pap smear is a screening test designed to aid in the detection of premalignant and malignant conditions of the uterine cervix. It is not a diagnostic procedure and should not be used as the sole means of detecting cervical cancer. Both false-positive and false-negative reports do occur. Test Methodology: Note 02 This liquid based ThinPrep(R) pap test was screened with the use of an image guided system. HPV Genotype Reflex Note 02 Criteria not met, HPV Genotype not performed. FLAG LEGEND: L-Low Normal,H-High Normal,LL-Alert Low,HH-Alert High <-Panic Low,>-Panic High,A-Abnormal,AA-Critical Abnormal Performed at: 02 [facility] [address] [address] Aniyah Zacarias MD, BRUSH-SPATULA CERVIX ENDOCERVIX CLINISYNCNOSaint Louis University [facility] ACOG PANEL 2: 30 to 65on 09-01-2022..NormalThe Trinity Health SystemComment on above:Result Comment: Performed at: NMSINPerformed By: #### [id number] #### [facility] [address] [place] [address] Dr. Ermelinda Nava Gdln ACOG Ahskpln70-67GqlizlZifDetwiler Memorial HospitalComment on above:Performed By: #### [id number] #### [facility] [address] [place] [address] Dr. Ermelinda WhiteDIAGNOSIS:CommentAbOhioHealth Riverside Methodist HospitalComment on above: Result Comment: EPITHELIAL CELL ABNORMALITY. ATYPICAL SQUAMOUS CELLS OF UNDETERMINED SIGNIFICANCE (ASC-US). Performed at: NMSINPerformed By: #### [id number] #### [facility] [address] [place] [address] Dr. Wadsworth ChangElectronically signed by:[facility] Comment on above:Result Comment: Opal Saucedo MD, Pathologist Performed at: NMSINPerformed By: #### [id number] #### [facility] [address] [place] [address] Dr. Ermelinda WhiteHPV AptimaNegativeNormalNegativeThe [facility] on above:Result Comment: This nucleic acid amplification test detects fourteen high-risk HPV types (16,18,31,33,35,39,45,51,52,56,58,59,66,68) without differentiation. Performed at: =GPerformed By: #### [id number] #### [facility] [address] [place] [address] Dr. Ermelinda WhiteMethodology:CommentGeorgetown Behavioral Hospital on above: Result Comment: This liquid based ThinPrep(R) pap test was screened with the use of an image guided system. Performed at: WBPerformed By: #### [id number] #### [facility] [address] [place] [address] Dr. Ermelinda WhiteNote:CommentNoWadsworth-Rittman Hospital on above:Result Comment: The Pap smear is a screening test designed to aid in the detection of premalignant and malignant conditions of the uterine cervix. It is not a diagnostic procedure and should not be used as the sole means of detecting cervical cancer. Both false-positive and false-negative reports do occur. . Performed at: WBPerformed By: #### [id number] #### [facility] [address] [place] [address] Dr. Ermelinda WhitePathologist Provided SGF38QxwvszrFxtwyaYzdOhioHealth Pickerington Methodist Hospital Comment on above:Result Comment: R87.610 Performed at: NMSINPerformed By: #### [id number] #### [facility] [address] [place] [address] Dr. Ermelinda WhitePerformed by:CommentGeorgetown Behavioral Hospital on above: Result Comment: Carey Lara, Animal Physiology Teacher (ASCP) Performed at: WBPerformed By: #### [id number] #### [facility] [address] [place] [address] Dr. Ermelinda WhiteSpecimen adequacy:CommentGeorgetown Behavioral Hospital on above:Result Comment: Satisfactory for evaluation. Endocervical and/or squamous metaplastic cells (endocervical component) are present. Performed at: NMSINPerformed By: #### [id number] #### [facility] [address] [place] [address] [address] Ermelinda Deshpande T4on 17-54-8278Rahr T4 [Mass/Vol]1.21 ng/dLNormal0.80-1.80 [facility] Methodist HospitalComment on above:Performed By: #### FT4, TSH #### [facility] [address] [place], [place] [id number] 96-79-0179MEV4.465 uIU/mLNormal0.400-4.500NortHolmes County Joel Pomerene Memorial HospitalComment on above:Performed By: #### FT4, TSH #### [facility] [address] [place], [place] [id number] Vital Signs Date TimeVital SignValuePerforming AhapvcakjFctgvakx70-97-6682 15:40-0400Body .1 cmEmily Thomas MD Work Phone: [facility] SystemOiflfbavmx03-05-4452 15:40-0400Body mass index (BMI) [Ratio]27.79 kg/f5PdlhfnlEmily Thomas MD Work Phone: [facility] SystemIvzvrdpuek26-07-8857 15:40-0400Body fuozli30.75 kgEmily Thomas MD Work Phone: [facility] SystemYqnjqhbsgj37-99-1849 15:40-0400Diastolic blood rhhwmxsy98 mm[Hg]Emily Thomas MD Work Phone: [facility] SystemUxaqgfqeql49-56-4419 15:40-0400Respiratory rate18 /minEmily Thomas MD Work Phone: [facility] SystemClcxnhxpmr85-44-5749 15:40-9032MhT6% (BldA) [Mass fraction]98 %Emily Thomas MD Work Phone: [facility] SystemMpkysuonso54-45-8929 15:40-0400Systolic blood yyhmyeak919 mm[Hg]Emily Thomas MD Work Phone: [facility] SystemSwbhuhqsua44-90-6373 08:34-0400Body lqrboz462.1 cmDonny Hollingsworth MD Work Phone: NOScotland [facility] Memorial HospitalBvkllctsnt73-95-1819 08:34-0400Body mass index (BMI) [Ratio]29.62 kg/v2BgiaedDonny Hollingsworth MD Work Phone: NOScotland County [facility] HospitalMmsngouuzu98-53-6681 08:34-0400Body eglalk99.74 kgDonny Hollingsworth MD Work Phone: NOScotland County Memorial HospitalHvqqplvcvo85-28-8536 08:34-0400Diastolic blood vaxduwid65 mm[Hg]Donny Hollingsworth MD Work Phone: NOScotland County Memorial HospitalWxeluenesy82-22-4450 08:34-0400Heart rate64 /min Donny Hollingsworth MD Work Phone: [facility] SystemJlspudbwoc96-91-8881 08:34-9482JkR7% (BldA) [Mass fraction]98 %Donny Hollingsworth MD Work Phone: NOScotland County Memorial HospitalAuxnpbfqjk02-97-7622 08:34-0400Systolic blood xqkkzzin660 mm[Hg]Donny Hollingsworth MD Work Phone: [facility] SystemOsjwdljlpr75-24-0059 15:43-0500Body mqrwma970.4 cmEmily Thomas MD Work Phone: [facility] SystemUwdsycehiw46-65-8984 15:43-0500Body mass index (BMI) [Ratio]27.86 kg/z1YmwusdlEmily Thomas MD Work Phone: [facility] SystemHdrjjctxtr58-73-1150 15:43-0500Body ganmjg88.11 kgEmily Thomas MD Work Phone: [facility] SystemLsjwazhajs88-45-6163 16:48-0400Body mass index (BMI) [Ratio]27.72 kg/s0Igvmm Sonia DO Work Phone: NOScotland County Memorial HospitalLkdtjrteqx03-57-3342 16:48-0400Body rpvfys76.71 kgCorey Sonia DO Work Phone: noScotland County Memorial HospitalBvzplsscid09-57-3798 16:48-0400Diastolic blood osomaiis30 mm[Hg]Ankita Sonia DO Work Phone: noScotland County Memorial HospitalMjqcyvpriv37-16-4631 16:48-0400Systolic blood xcznlsud077 mm[Hg]Ankita Yano DO Work Phone: noScotland County Memorial HospitalZstwsatfmb29-34-5862 15:38-0500Body mass index (BMI) [Ratio]27.86 kg/l8RztmphDonny Hollingsworth MD Work Phone: NOScotland County Memorial HospitalLezdgvkpyc01-33-4954 15:38-0500Body kyldfc92.11 kgDonny Hollingsworth MD Work Phone: NOScotland County Memorial HospitalClznasdqzh94-77-0839 15:38-0500Diastolic blood idjjtfjl36 mm[Hg]Donny Hollingsworth MD Work Phone: NOScotland County Memorial HospitalJxghskcxrt90-83-8941 15:38-0500Heart rate75 /min Donny Hollingsworth MD Work Phone: noScotland County Memorial HospitalVztrjvtuly85-15-8186 15:38-3385LbI2% (BldA) [Mass fraction]98 %Donny Hollingsworth MD Work Phone: noScotland County Memorial HospitalYglojzgowm87-72-4426 15:38-0500Systolic blood ghspyuot450 mm[Hg]Donny Hollingsworth MD Work Phone: noIL Healthcare Encounters Encounter DateEncounter TypeCare ProviderFacilityStart: 09-12-2025 End: 90-13-4346Jdelge flowsheetCorey Sonia DO Work Phone: noIL Michel OBGYNStart: 09-12-2025 End: 09-90-8567Vttlqz flowsheetCorey Sonia DO Work Phone: noMS Michel OBGYNStart: 08-06-2025 End: 08-29-5586Vpewed outpatient visit 25 minutesEmily Thomas MD Work Phone: noms [facility]rento NeurologyComment on above:Chronic migraine without aura, not intractable, without status migrainosusStart: 08-06-2025 End: 39-63-9571ipbsngqxplUGBBDRE W BAUERNot AvailableStart: 08-06-2025 End: 86-07-3662Kjpxhm Louie Thomas MD Work Phone: noms BM NEUROLOGYStart: 08-06-2025 End: 94-84-7014Gfftxv Louie Thomas MD Work Phone: noms BM NEUROLOGYStart: 04-03-2025 End: 55-55-5917HeqlvdRwgawvd C Natalyasalazarleonardo CARDIOGRAPHER Work Phone: noms SWS NEURComment on above:Chronic migraine without aura, not intractable, without status migrainosus (CMS/HCC)Start: 03-20-2025 End: 18-73-0764Pwytvoma Result EncounterDonny Hollingsworth MD Work Phone: NOMS External Department UnsolicitedStart: 03-20-2025 End: 94-91-8492Eloqmwbh Result EncounterDonny Hollingsworth MD Work Phone: [facility] External Department UnsolicitedStart: 03-16-2025 End: 97-65-6076prtwoldveiHECVCN B BERRYNot AvailableStart: 03-14-2025 End: 78-79-8582Hyjtsj flowsHerminia Hollingsworth MD Work Phone: NOMS CI FMStart: 03-14-2025 End: 98-86-8163Sffzhf Ward Hollingsworth MD Work Phone: NOM[facility] CI FMStart: 03-14-2025 End: 76-10-1604Smjdqzw encounter statusDonny Hollingsworth MD Work Phone: [facility] Work Phone: Start: 03-14-2025 End: 10-03-4674Wqyybcka preventive med est patient 40-64yrsDaniharini Hollingsworth MD Work Phone: NOM[facility] CI FMComment on above:Wellness examination (Primary Dx); Encounter for screening mammogram for breast cancer; Benign essential blepharospasm; Irritable bowel syndrome with diarrhea; Acquired hypothyroidism (CMS/HCC); Mild intermittent asthma without complication (CMS/HCC)Start: 03-14-2025 End: 46-57-7556kkylcteaspBOMQNU B BERRYNot AvailableStart: 02-02-2025 End: 15-94-4403szaaibnddyMHPOQHB C WINDNALEONARDONot AvailableStart: 01-12-2025 End: 18-40-4181XawaguZmjzajn W Bauer MD Work Phone: noms SWS NEURComment on above:Insomnia, unspecified type; Muscle spasm; Intractable migraine with aura with status migrainosus (CMS/HCC); Difficulty in walking, not elsewhere classified; Disturbance of skin sensationStart: 10-03-2024 End: 07-64-8581ImybusLugcwgm W Bauer MD Work Phone: noms SWS NEURComment on above:Insomnia, unspecified type; Muscle spasm; Intractable migraine with aura with status migrainosus (CMS/HCC); Difficulty in walking, not elsewhere classified; Disturbance of skin sensationStart: 10-02-2024 End: 18-41-7885Jzlaxm outpatient visit 25 minutesEmily Thomas MD Work Phone: noms SWS NEURComment on above:Chronic migraine without aura, not intractable, without status migrainosus (CMS/HCC) (Primary Dx); Carpal tunnel syndrome of right wristStart: 10-02-2024 End: 63-19-1821ruutknuapyGGWYZKA W BAUERNot AvailableStart: 10-02-2024 End: 40-79-1823Hagbns flowsJoanna Thomas MD Work Phone: noms NEUROLOGYStart: 10-02-2024 End: 28-54-1370Tpbcur Louie Thomas MD Work Phone: noms NEUROLOGYStart: 09-11-2024 End: 79-86-9894Ywlhozw encounter procedureCorey Sonia DO Work Phone: [facility] Work Phone: Start: 09-11-2024 End: 20-34-3015Bhtwdqer preventive med est patient 40-64yrsCorey Sonia DO Work Phone: noms BCP OBComment on above:Well woman exam with routine gynecological examStart: 09-11-2024 End: 51-17-0573xvcomxuoosWYGAJ FAZIONot AvailableStart: 09-11-2024 End: 50-60-1757Ribxem flowsheetCorey Sonia DO Work Phone: noms BCP OBStart: 09-11-2024 End: 09-56-1113Edvzfl flowsheetCorey Sonia DO Work Phone: noms BCP OBStart: 09-11-2024 End: 41-76-7152Aryalocqu Result EncounterCorey Sonia DO Work Phone: noms External Department UnsolicitedStart: 01-05-2024 Bamboo flowsheetMaria B Apling CARDIOGRAPHER Work Phone: noms CI ORTHOPAEDICSStart: 61-82-5536Ckgzxm flowsheet Nadya B Apling CARDIOGRAPHER Work Phone: noms CI ORTHOPAEDICSStart: 12-23-2023 End: 82-86-5166Vwjpqxf encounter statusDonny Hollingsworth MD Work Phone: [facility] Work Phone: Start: 12-23-2023 End: 25-85-9485Nhqbpxsh preventive med est patient 40-64yrsDlaisha Hollingsworth MD Work Phone: noms CI FMComment on above:Wellness examination (Primary Dx); Irritable bowel syndrome with diarrhea; Effusion of right knee; Acute sinusitis, recurrence not specified, unspecified locationStart: 08-24-2022 End: 97-87-3505eptnllufpfIQ ANKITA FAZIOFacility:H1 Procedures DateProcedureProcedure DetailPerforming ClinicianStart: 65-39-2080Cnryn of gammaglobulin iga igd igg igm Jalyn Hollingsworth MD Work Phone: Start: 10-56-8992CynxjnucxdaApdncy Berry MD Work Phone: Start: 91-38-9596ALX,APTIMA HPV,AGE GDLNCorey Sonia DO Work Phone: Start: 72-64-0417Lkctvzjvilj observation [Identifier] in Cervix by Cyto stainEmily Thomas MD Work Phone: Start: 03-27-0939VuiztjefnzrQtfre Sonia DO Work Phone: Start: 98-32-9668Vpqgagyxslc observation [Identifier] in Cervix by Cyto stainCorejordyn Sonia DO Work Phone: Start: 64-46-2142Gdttwtccssk observation [Identifier] in Cervix by Cyto Vicki Hollingsworth MD Work Phone: Plan of Treatment DateCare ActivityDetailAuthorStart: 43-87-4454Ofmxqnvew for malignant neoplasm of cervixNOMS HealthcareStart: 78-22-4117Bzyawxpmk for malignant neoplasm of cervixNOMS HealthcareStart: 40-11-2656Orojwtgju for malignant neoplasm of cervix Pap SmearNOMS HealthcareStart: 83-91-1945Hlyzekewz for malignant neoplasm of breastMammogramNOMS HealthcareStart: 11-08-2025 End: 21-13-2643Yjxlcyx encounter procedureNOMS Sorrento NeurologyStart: 09-12-2025 End: 39-46-0850Okhsivb encounter procedureNOMS BCP OBComment on above:Arrived Start: 08-06-2025 End: 54-02-7203Grwrmrq encounter procedureNOMS SWS NEURComment on above:Arrived Start: 40-13-3322Jhrnyrdsf vaccinationInfluenza Vaccine (#1)[facility] Start: 03-14-2025 End: 445072-ercmdcsojczwxj D3 [Mass/volume] in Serum or PlasmaVitamin D 25 hydroxy Lab Routine Wellness examination Expected: 03/14/2025 (Approximate), Expires: 03/14/2026NOMS HealthcareComment on above:Expected: 03/14/2025 (Approximate), Expires: 03/14/2026Start: 03-14-2025 End: 84-54-7963Uhdrur reflex panelCeliac reflex panel Lab Routine Irritable bowel syndrome with diarrhea Expected: 03/14/2025 (Approximate), Expires: 03/14/2026NOIL HealthcareComment on above:Expected: 03/14/2025 (Approximate), Expires: 03/14/2026Start: 03-14-2025 End: 71-93-7593Hecrjcywlpvlh metabolic 2000 panel - Serum or PlasmaComprehensive metabolic panel Lab Routine Wellness examination Benign essential blepharospasm Expected: 03/14/2025 (Approximate), Expires: 03/14/2026NOIL HealthcareComment on above:Expected: 03/14/2025 (Approximate), Expires: 03/14/2026Start: 03-14-2025 End: 73-53-4981Ngrag 1996 panel - Serum or PlasmaLipid panel Lab Routine Wellness examination Benign essential blepharospasm Expected: 03/14/2025 (Ap proximate), Expires: 03/14/2026NOIL HealthcareComment on above:Expected: 03/14/2025 (Approximate), Expires: 03/14/2026Start: 03-14-2025 End: 92-43-3991Gqdqgmpgl [Mass/volume] in Serum or PlasmaMagnesium Lab Routine Irritable bowel syndrome with diarrhea Expected: 03/14/2025 (Approximate), Exp ires: 03/14/2026NOIL HealthcareComment on above:Expected: 03/14/2025 (Approximate), Expires: 03/14/2026Start: 03-14-2025 End: 13-13-4515UM Breast - bilateral ScreeningBilateral screening mammogram Imaging Routine Encounter for screening mammogram for breast cancer Expected: 03/14/2025, Expires: 05/14/2026[facility] Work Phone: Comment on above:Expected: 03/14/2025, Expires: 05/14/2026Start: 03-14-2025 End: 33-74-3985Hzgogmurfgp [Units/volume] in Serum or PlasmaTSH Lab Routine Wellness examination Acquired hypothyroidism (CMS/HCC) Expected: 03/14/2025 (Approximate), Expires: 03/14/2026NOIL HealthcareComment on above:Expected: 03/14/2025 (Approximate), Expires: 03/14/2026Start: 03-14-2025 End: 87-73-5445Sdydnjwht (T4) free [Mass/volume] in Serum or PlasmaT4, free Lab Routine Wellness examination Acquired hypothyroidism (CMS/HCC) Expected: 03/14/2025 (Approximate), Expires: 03/14/2026NOIL HealthcareComment on above: Expected: 03/14/2025 (Approximate), Expires: 03/14/2026Start: 03-14-2025 End: 09-34-4982Fschjowdxyjgzuvo (T3) Free [Mass/volume] in Serum or PlasmaT3, free Lab Routine Wellness examination Acquired hypothyroidism (CMS/HCC) Expected: 03/14/2025 (Approximate), Expires: 03/14/2026NOIL HealthcareComment on above:Expected: 03/14/2025 (Approximate), Expires: 03/14/2026Start: 03-14-2025 End: 86-78-5082Jbgggly encounter qynqycrat06/23/2025 8:30 AM EDT Office Visit [facility] [address] [facility] [address] [place] [address] Donny Hollingsworth MD [address] [facility] [address] [place] [address] ArrivedNOMS CI FMComment on above:ArrivedStart: 01-15-2025 End: 93-20-6898Xhhihil encounter tyzfagklv66/24/2025 3:40 PM EST Office Visit [facility] [address] [facility] [address] [place] [address] Emily Thomas MD [address] [address] [facility] SWS NEURStart: 79-59-2110Ndtnirddx for malignant neoplasm of breastMammogramNOMS HealthcareStart: 10-02-2024 End: 97-61-0303Tmuettu encounter wwrffkaqv19/11/2024 3:40 PM EST Office Visit [facility] [address] [facility] [address] [place] [address] Emily Thomas MD [address]son [address] [place] [address], [place] [address] [facility] NEURStart: 09-11-2024 End: 78-78-9912Sxxuprm encounter procedureNOMS BCP OBComment on above:Arrived Start: 76-17-6068Mmnngeljp vaccinationInfluenza Vaccine (#1)[facility] Start: 02-17-2024 End: 04-80-0340Kjrfomv encounter hwjyejggk38/28/2024 3:40 PM EDT Office Visit [facility] NE[facility] [address] [address] Emily Thomas MD [address] [place] [address] [facility] NEURStart: 01-12-2024 End: 15-56-7785Bqzooyzbrwzm / ancillary services pckgwxyhgi81/21/2024 3:30 PM EST Ancillary Procedure [facility] BREAST [address] [facility] [address] [place] [id number] [facility] FNR BREASTStart: 01-05-2024 End: 42-60-5906Tlebqxq encounter amligtyfz05/14/2024 1:00 PM EST Office Visit [facility] OR[facility]OPA[facility] [address] [facility] [address] [place] [address] Nadya Eduardo, CARDIOGRAPHER [address] [place] [address] [place] [address] Right knee pain, unspecified chronicity (Primary Dx)[facility] CI ORTHOPAEDICSComment on above:Right knee pain, unspecified chronicity (Primary Dx)Start: 34-79-0239Ebcxpeece for malignant neoplasm of breastMammogramNOMS HealthcareCBC W Auto Differential panel - BloodCBC and differential Lab Routine Wellness examination Irritable bowel syndrome with diarrhea Acquired hypothyroidism ([facility]/HCC) Ordered: 03/14/2025[facility] Comment on above:Ordered: 03/14/2025THIN PREP TIS PAP AND HR HPV DNATHIN PREP TIS PAP AND HR HPV DNA Pathology and Cytology Routine Well woman exam with routine gynecological exam Ordered: 09/11/2024[facility] Work Phone: comment on above:Ordered: 09/11/2024 Immunizations Immunization DateImmunizationNotesCare JwbbhcajIxwnophy45-84-0591mtacssqrp, seasonal, injectable, preservative Moon Hollingsworth MD Work Phone: [facility] SystemEvphtumyht34-47-9332bmkrzeves virus vaccine, unspecified formulationEmily Thomas MD Work Phone: [facility] SystemTcpdllbgmd58-69-4718xozowdddi, injectable, quadrivalent, preservative Moon Hollingsworth MD Work Phone: [facility] SystemGdfrxwigqi59-92-5106kccgemznb virus vaccine, unspecified formulationAnkita Soniamatthew NELSON Work Phone: [facility] SystemChvjamesli15-56-2402jwiwwdyvc, injectable, quadrivalent, preservative Moon Hollingsworth MD Work Phone: [facility] SystemEyjqudpqgj77-00-7487vrgzbsowp, injectable, quadrivalent, preservative Moon Hollingsworth MD Work Phone: [facility] SystemCdbyenlpyd49-61-9632nyjneagvq, injectable, quadrivalent, contains preservativeDonny Hollingsworth MD Work Phone: [facility] SystemTkgwmcdlri72-91-1397ujtpenetg, injectable, quadrivalent, preservative Moon Hollingsworth MD Work Phone: [phone] [place], [place] [address]Jocbkofgyq09-91-6292zirojkjp influenza, intradermal, preservative Moon Hollingsworth MD Work Phone: [place] [address]Ssswajnxez51-07-8938bwwkktadu, injectable, quadrivalent, contains preservativeDonny Hollingsworth MD Work Phone: [place] [address]Dyfkpjikrt06-80-3775zlavjtres, injectable, quadrivalent, preservative Moon Hollingsworth MD Work Phone: [facility] SystemJodcdczckf74-17-5871fezqdarmg, seasonal, injectable, preservative Moon Hollingsworth MD Work Phone: [facility] SystemKqiemvbxtv01-47-8480xjkgqarjf, seasonal, injectableLonnieniharini Hollingsworth MD Work Phone: [facility] SystemSnplcayvlb89-72-5526webdwbdr influenza, intradermal, preservative Moon Hollignsworth MD Work Phone: [facility] Payers DatePayer CategoryPayerPolicy [id number] Health InsuranceHEALTHSCOPE [id number] HEALTHSCOPE [id number] 2022-Present [address] [address] [place] [id number] [id number] 2..[id number] 2..1.[id number] 2..[id number] 2..840.1.267761.3.57[id number] 2..840.1.948302.3.57[id number] [id number] Social History DateTypeDetailFacilityStart: 12-21-2023 End: 27-67-2799Ggejxet smoking status NHISEx-smokerNOMS HealthcareStart: 10-02-1999 End: 17-53-9784Thwkryz of tobacco useCurrent smokerNOMS HealthcareStart: 10-02-1999 End: 46-23-2599Kdvrzzr of tobacco useCigarette SmokerNOMS HealthcareStart: 12-21-2023 End: 58-13-9491Bfqyigqzui smoked current (pack per day) - Reported1.5NOMS HealthcareStart: 12-21-2023 End: 72-47-5379Bpgfncy use and exposureSmokeless tobacco non-userNOMS Healthcare Start: 12-23-2023 End: 98-75-6371Ikvxaio intakeEx-drinker (finding)NOMS HealthcareStart: 12-20-2023 End: 18-20-0521Kjjjhzczccu, Afraid, Rape, and Kick questionnaire [HARK]NOMS HealthcareWithin the last year, have you been afraid of your partner or ex-partner?NoNOMS HealthcareDo you belong to any clubs or organizations such as islam groups, unions, fraternal or athletic groups, or school groups?YesNOMS HealthcareAre you now , , , , never or living with a partner?Never marriedNOMS HealthcareHow often to you have a drink containing alcohol?Monthly or lessNOMS HealthcareHow many standard drinks containing alcohol do you have on a typical day?1 or 2NOMS HealthcareHow often do you have 6 or more drinks on 1 occasion?NeverNOMS HealthcareHow hard is it for you to pay for the very basics like food, housing, medical care, and heating HardNOMS HealthcareDo you feel stress - tense, restless, nervous, or anxious, or unable to sleep at night because yourmind is troubled all the time - these days [OSQ]Only a littleNOMS Healthcare(I/We) worried whether (my/our) food would run out before (I/we) got money to buy more.Sometimes trueNOMS HealthcareStart: 00-83-9590Zv the past 12 months, has lack of transportation kept you from medical appointments or from getting medications?NoNOMS HealthcareStart: 43-14-9654Jso Assigned At BirthFemaleNOMS HealthcareStart: 75-07-4573Fdcjrc identityIdentifies as female gender (finding)NOMS HealthcareHow hard is it for you to pay for the very basics like food, housing, medical care, and heating Somewhat hardNOMS HealthcareDo you feel stress - tense, restless, nervous, or anxious, or unable to sleep at night because yourmind is troubled all the time - these days [OSQ]Not at allNOMS Healthcare(I/We) worried whether (my/our) food would run out before (I/we) got money to buy more.Never trueNOIL Healthcare Functional Status UdvmXhwmwbdenyTohxhoFldmavlz65-61-0841Qwmjbal Health Questionnaire 2 item (PHQ- 2) [Reported][facility] Clinical Notes 12-23-2023 to 08-06-2025 Note Date & CifhJpibCeepxvdn39-73-1281 History of Present illness Narrative* Emily Thomas MD - 08/06/2025 3:40 PM EDT Images from the original note were not included. Subjective Oj Ahmadi is a 45 y.o. female who presents for Migraine and Insomnia. History of Present Illness The patient presents to follow up for migraines and insomnia. The patient presents via virtual visit for evaluation of headaches. She is currently on Ubrelvy and Qulipta, with a supply of 3 refills remaining. She also takes Topamax, which she obtains from [facility]. During her last visit, she was advised to discontinue Topamax,which led to an increase in the frequency of her headaches. She experienced withdrawal symptoms, including daily headaches. After resuming Topamax, it took approximately a month for her symptoms to subside. She also reported a delay in receiving her Qulipta refill, resulting in a week and a half without the medication. She has noticed an increased sensitivity to strong odors, such as perfumes andcolognes, which can trigger her headaches. Despite these challenges, she continues to work full-time , six days a week, and participates in a [employer] run on Sundays. INTERVAL: Since the last visit, she was advised to discontinue Topamax, which resulted in increasedheadache frequency and withdrawal symptoms. After resuming Topamax, it took about a month for her symptoms to improve. MEDICATIONS CURRENT MEDS: Ubrelvy Qulipta Topamax Mobic PREVIOUS MEDS: Topamax Reason for Discontinuation: Withdrawal symptoms and increased headaches Review of Systems Const: Denies appetite change, fever, chills. Allergy: Denies medication reaction. Ocular: Denies visual acuity change. ENT: Denies hearing change. Endoc: Denies weight loss. Resp: Denies dyspnoea, wheezing. Cardiac: Denies angina, palpitations. GI: Denies nausea, vomiting. Haem: Denies bleeding. : Denies incontinence. MSK: Denies arthralgias, joint oedema. Derm: Denies rash, hair loss. Neuro: Denies ataxia, tremor. Also see HPI for elements of ROS documented therein and for details of positive findings, which shall supersede the foregoing. Neurological Exam Procedures Objective There were no vitals taken for this visit. Physical Exam Cranial Nerve Examination CN VII: Facial movements and symmetry are normal. CN XI: Shoulder shrug and head turn are normal. Motor Examination Strength: Hand strength is normal. GENERAL EXAMINATION Appearance: in no acute distress, well developed, well nourished. Head: normocephalic, atraumatic. Eyes: pupils equal, round, reactive to light and accommodation. Ears: normal. Mouth: mucosa moist. Throat: clear. Neck: neck supple, full range of motion, no cervical lymphadenopathy. Skin: no suspicious lesions, warm and dry. Heart: no murmurs, regular rate and rhythm, S1, S2 normal. Lungs: clear to auscultation bilaterally. Abdomen: normal, bowel sounds present, soft, nontender, nondistended. Extremities: no clubbing, cyanosis, or edema. NEUROLOGICAL EXAMINATION Mental Status: The patient is alert and oriented to person, place, and time. Except as noted, thought content, form, and comprehension was normal. Phonation, articulation, resonance, and prosody are normal. Cranial Nerves: Pupils were 4.0 millimeters, equal, round, and reactive to light and accommodation,both directly and consensually. Visual tinsley were full by confrontation. There was no ptosis; extra-ocular movements were full; and there was no nystagmus. Funduscopic exam is normal. Masseters are of normal strength. Facial movement is normal. Hearing is grossly intact. There is no dysarthria. The gag reflex is equal bilaterally. Sternocleidomastoids and trapezii are of normal strength. The tongue protrudes in the midline. Motor: Muscle testing was performed in all four extremities, including at least mortgage sales manager, finger abductors, biceps, triceps, deltoid, toe flexors and extensors, tibialis anterior, triceps surae, quadriceps femoris, biceps femoris, and iliopsoases. Tone is normal. Muscle bulk is normal. Fasciculations are not seen . Pronator drift was not evident. Sensory: Sensation to touch, temperature, and vibration was normal in the arms, legs and face. Romberg is negative. Reflexes: Biceps, triceps, brachioradialis are 2/4 bilaterally. Patellar and Achilles reflexes are 2/4 bilaterally. Plantar responses were flexor bilaterally. Coordination: Dysmetria and dysdiadochokinesia are absent. Tremor is absent; dystonia is absent; chorea is absent. Gait And Station: Station and gait are normal. Apraxia and spasticity are not evident. Arm swing isnormal. Toe, heel, and tandem walking are performed without difficulty. Musculoskeletal: Trigger-point tenderness was absent. There is no spasm of the trapezii or paraspinals. Results Assessment & Plan 1. Headaches. She reports that discontinuing Topamax previously led to withdrawal headaches and increased frequency of headaches. She is currently taking Ubrelvy, Qulipta, and Topamax, which have been effective inmanaging her symptoms. She also mentioned experiencing heightened sensitivity to strong smells, which can trigger her headaches. She will continue her current regimen of Ubrelvy, Qulipta, and Topamax. Refills for Ubrelvy and Qulipta have been confirmed to be sufficient. A prescription for Topamax will be sent to [facility] to ensure she has an adequate supply. 2. I will start the patient on Topamax 25 mg at bed and increase each week up to four tablets at bedtime. I will see if this helps decrease the frequency as well as the intensity of migraine and/or muscle tension type headaches. 3. Meloxicam for DDD. 4. Qulipta 60 mg every day. 5. Ublrevy as needed 100 mg, 6. I counseled the patient on the possible side effects and interactions of medications. documented in this [facility]05-13-2025 Telephone encounter Note* Telephone Encounter - Rosenda Palomino NP - 04/03/2025 11:44 AM EDT New script sent. Do not know why. [facility] [id number] Miscellaneous Notes* Telephone Encounter - Rosenda Palomino NP - 04/03/2025 11:44 AM EDT New script sent. Do not know why. documented in this [facility]04-23-2025 History of Present illness Narrative* Donny Hollingsworth MD - 03/14/2025 8:30 AM EDT Images from the original note were not included. HPI Med Refill Additional comments: Susan granger Last edited by Iesha Kerns LPN on 03/14/2025 8:44 AM. Subjective Patient ID: Oj Ahmadi is a 44 y.o. female who presents for Annual Exam and Med Refill (Meli--AMY granger). HPI Current Outpatient Medications on File Prior to Visit Medication Sig Dispense Refill Atogepant (Qulipta) 60 MG tablet Take 1 tablet by mouth Daily 90 tablet 2 cyanocobalamin (Vitamin B-12) 1000 MCG tablet every 12 (twelve) hours. dexAMETHasone (Decadron) 2 MG tablet 2mg 3 pills po X3 days,2 pills po daily X3 days , then 1 pill po daily X3 days then stop 9 days 18 pills 18 tablet 1 Levonorgestrel (Mirena, 52 MG,) 20 MCG/DAY intrauterine device as directed Intrauterine levothyroxine (Synthroid, Levoxyl) 200 MCG tablet TAKE 1 TABLET BY MOUTH DAILY 100 tablet 3 levothyroxine (Synthroid, Levoxyl) 25 MCG tablet TAKE 1 TABLET BY MOUTH DAILY 100 tablet 3 LORazepam (Ativan) 0.5 MG tablet Take 1 tablet (0.5 mg) by mouth See administration instructions for 10 days 1 by mouth 1 hour prior to MRI, may repeat X 1 dose 2 tablet 0 meloxicam (Mobic) 15 MG tablet Take 1 tablet (15 mg) by mouth Daily 90 tablet 3 saccharomyces boulardii (Florastor) 250 MG capsule Take 250 mg by mouth in the morning and 250 mg before bedtime. tiZANidine (Zanaflex) 4 MG tablet TAKE 2 TABLETS BY MOUTH AT BEDTIME 180 tablet 3 topiramate (Topamax) 200 MG tablet Take 200 mg by mouth See administration instructions. TAKE 1 TABLET BY MOUTH IN THE MORNING, then TAKE 2 TABLETS AT BEDTIME Ubrogepant (Ubrelvy) 100 MG tablet Take 100 mg by mouth 1 (one) time if needed (at the onset of migraine) MAY TAKE SECOND DOSE AT LEAST 2 HOURS AFTER FIRST DOSE NEEDED AT ONSET OF MIGRAINE. MAX 200MG/DAY 48 tablet 3 [DISCONTINUED] dicyclomine (Bentyl) 20 MG tablet TAKE 1 TABLET BY MOUTH THREE TIMES DAILY 42 tablet0 No current facility-administered medications on file prior to visit. I have reviewed and reconciled the history and medication list with the patient today. Allergies Allergen Reactions Biotin GI intolerance Other Reaction(s): Unknown Colestipol Other Reaction(s): HIVES Social History Tobacco Use Smoking status: Former Average packs/day: 1.5 packs/day for 20.0 years (30.0 ttl pk-yrs) Types: Cigarettes Start date: 10/02/1999 Smokeless tobacco: Never Substance Use Topics Alcohol use: Not Currently Drug use: Never Family History Problem Relation Name Age of Onset Diabetes Mother Milagros Hypertension Mother Milagros Hyperlipidemia Mother Milagros Heart disease Mother Milagros Mental illness Mother Milagros Other (cancer) Mother Milagros Cancer Mother Milagros Stroke Mother Milagros Heart disease Father Enrico Ahmadi Lung cancer Father Enrico Ahmadi Accidental Brother Luis Ahmadi Drug abuse Brother Luis Ahmadi Hypertension Maternal Grandmother Milagros Ball Mental illness Sibling Past Medical History: Diagnosis Date Allergic ALLERGIC REACTION HIVES Allergies Anemia Asthma atopic 2011 B-complex deficiency Benign intracranial hypertension Breast cancer screening by mammogram Chronic lymphocytic thyroiditis (CMS/HCC) Fatigue Molly's disease (CMS/HCC) Headache History of being hospitalized childbirth Hypersomnia Hypothyroidism (CMS/HCC) Inadequate sleep hygiene Malaise and fatigue Migraine Nausea Obesity (BMI 30.0-34.9) Vitamin D deficiency Well woman exam Past Surgical History: Procedure Laterality Date COLECTOMY 2010 OTHER SURGICAL HISTORY 2010 [facility] COLESTIPOL;Disease:ALLERGIC REACTION HIVES MI REMOVAL OF FALLOPIAN TUBE Left 06/2012 removal of left fallopian tube;Disease:atopic Visit Vitals BP 124/70 Pulse 64 Ht 5' 5 Wt 178 lb SpO2 98% BMI 29.62 kg/m OB Status Implant Smoking Status Former BSA 1.92 m Review of Systems Objective Physical Exam Constitutional: General: She is not in acute distress. Appearance: Normal appearance. She is well-developed. HENT: Head: Normocephalic and atraumatic. Eyes: General: No scleral icterus. Conjunctiva/sclera: Conjunctivae normal. Cardiovascular: Rate and Rhythm: Normal rate and regular rhythm. Heart sounds: Normal heart sounds. No murmur heard. Pulmonary: Effort: Pulmonary effort is normal. No respiratory distress. Breath sounds: Normal breath sounds. No wheezing, rhonchi or rales. Skin: General: Skin is warm and dry. Neurological: General: No focal deficit present. Mental Status: She is alert and oriented to person, place, and time. Psychiatric: Mood and Affect: Mood normal. Behavior: Behavior normal. Assessment/Plan Diagnoses and all orders for this visit: Wellness examination - CBC and differential - Comprehensive metabolic panel; Future - Lipid panel; Future - TSH; Future - T4, free; Future - T3, free; Future - Vitamin D 25 hydroxy; Future Encounter for screening mammogram for breast cancer - Bilateral screening mammogram; Future Benign essential blepharospasm - Comprehensive metabolic panel; Future - Lipid panel; Future Irritable bowel syndrome with diarrhea - CBC and differential - dicyclomine (Bentyl) 20 MG tablet; Take 1 tablet (20 mg) by mouth every 6 (six) hours during the day - Magnesium; Future - Celiac reflex panel; Future Acquired hypothyroidism (CMS/HCC) - CBC and differential - TSH; Future - T4, free; Future - T3, free; Future Mild intermittent asthma without complication (CMS/HCC) No follow-ups on file. documented in this encounterLake Regional Health [id number] History of Present illness Narrative* Emily Thomas MD - 10/02/2024 3:40 PM EST Images from the original note were not included. CHIEF COMPLAINT REASON FOR VISIT: Migraines HPI: Oj Ahmadi is a 44 y.o. female who presents for Patient for a follow up. She states that her headaches have been better. She states if her hair is longer it will pull on her head and cause her a headache. She states that she did not rest much this weekend. She states today is 5 years without smoking. She states she did two 5K's this weekend. She states ubrelvy normally helps. She states that the headaches are hit or miss. She states it depends on smells and weather changes and stress. She states that normally she has been pretty good and has not had to use the ubrelvy much, Admits to nausea. Denies any other concerns. CURRENT MEDICATIONS: ALLERGIES/DISCONTINUE MEDICATIONS Current Outpatient Medications Medication Instructions cyanocobalamin (Vitamin B-12) 1000 MCG tablet Every 12 hours dexAMETHasone (Decadron) 2 MG tablet 2mg 3 pills po X3 days,2 pills po daily X3 days , then 1 pill po daily X3 days then stop 9 days 18 pills dicyclomine (BENTYL) 20 mg, Oral, 3 times daily eletriptan (RELPAX) 40 mg, Oral, See admin instructions, TAKE 1 TABLET BY MOUTH at onset OF migraine, may repeat once after 2 HOURS (max TWICE DAILY, TWICE A WEEK) MUST LAST 30 DAYS Levonorgestrel (Mirena, 52 MG,) 20 MCG/DAY intrauterine device as directed Intrauterine levothyroxine (SYNTHROID, LEVOXYL) 200 mcg, Oral, Daily levothyroxine (SYNTHROID, LEVOXYL) 25 mcg, Oral, Daily LORazepam (ATIVAN) 0.5 mg, Oral, See admin instructions, 1 by mouth 1 hour prior to MRI, may repeatX 1 dose Qulipta 60 MG tablet 1 tablet, Oral, Daily saccharomyces boulardii (FLORASTOR) 250 mg, Oral, 2 times daily tiZANidine (Zanaflex) 4 MG tablet Take two (4 mg) tablets at bed. topiramate (Topamax) 200 MG tablet TAKE 1 TABLET BY MOUTH IN THE MORNING and TAKE 2 TABLETS BY MOUTH AT BEDTIME topiramate (TOPAMAX) 200 mg, Oral, See admin instructions, TAKE 1 TABLET BY MOUTH IN THE MORNING, then TAKE 2 TABLETS AT BEDTIME Ubrelvy 100 mg, Oral, Once as needed, MAY TAKE SECOND DOSE AT LEAST 2 HOURS AFTER FIRST DOSE NEEDED AT ONSET OF MIGRAINE. MAX 200MG/DAY Allergies Allergen Reactions Biotin Other Reaction(s): Unknown Colestipol Other Reaction(s): HIVES There are no discontinued medications. PAST MEDICAL HISTORY: SURGICAL/SOCIAL/FAMILY HISTORY DEPRESSION SCREEN: Past Medical History: Diagnosis Date Allergic ALLERGIC REACTION HIVES Allergies Anemia Asthma (CMS/HCC) atopic 2011 B-complex deficiency Benign intracranial hypertension Breast cancer screening by mammogram Chronic lymphocytic thyroiditis (CMS/HCC) Fatigue Molly's disease (CMS/HCC) Headache History of being hospitalized childbirth Hypersomnia Hypothyroidism (CMS/HCC) Inadequate sleep hygiene Malaise and fatigue Migraine (CMS/HCC) Nausea Obesity (BMI 30.0-34.9) Vitamin D deficiency Well woman exam Past Surgical History: Procedure Laterality Date COLECTOMY 2010 OTHER SURGICAL HISTORY 2010 [facility] COLESTIPOL;Disease:ALLERGIC REACTION HIVES MI REMOVAL OF FALLOPIAN TUBE Left 06/2012 removal of left fallopian tube;Disease:atopic Social History Tobacco Use Smoking status: Former Current packs/day: 0.00 Average packs/day: 1.5 packs/day for 20.0 years (30.0 ttl pk-yrs) Types: Cigarettes Start date: 10/02/1999 Quit date: 10/02/2019 Years since quittin.0 Smokeless tobacco: Never Substance Use Topics Alcohol use: Not Currently Drug use: Never Family History Problem Relation Name Age of Onset Diabetes Mother Milagros Hypertension Mother Milagros Hyperlipidemia Mother Milagros Heart disease Mother Milagros Mental illness Mother Milagros Other (cancer) Mother Milagros Cancer Mother Milagros Stroke Mother Milagros Heart disease Father Enrico Ahmadi Lung cancer Father Enrico Ahmadi Accidental Brother Luis Ahmadi Drug abuse Brother Luis Ahmadi Hypertension Maternal Grandmother Milagros Ball Mental illness Sibling Depression: Not on file REVIEW OF SYMPTOMS: Review of Systems Constitutional: Negative for chills, diaphoresis, fatigue and fever. HENT: Negative for ear pain, tinnitus and trouble swallowing. Eyes: Negative for photophobia and visual disturbance. Respiratory: Negative for cough and shortness of breath. Cardiovascular: Negative for palpitations and leg swelling. Gastrointestinal: Positive for nausea. Negative for abdominal pain. Genitourinary: Negative for difficulty urinating and urgency. Musculoskeletal: Negative for arthralgias, back pain, myalgias, neck pain and neck stiffness. Neurological: Positive for headaches. Negative for tremors, weakness, light- headedness and numbness. Psychiatric/Behavioral: Negative for agitation, confusion and suicidal ideas. OBJECTIVE: 10/02/2024 3:43 PM 09/11/2024 4:48 PM 03/15/2024 3:16 PM Vitals BMI 27.86 kg/m2 27.72 kg/m2 30.48 kg/m2 BSA (m2) 1.89 m2 1.88 m2 1.97 m2 Systolic 118 Diastolic 80 Height (in) 5' 5.5 5' 5.5 Weight (lb) 170 169.12 186 Visit Report Report Report Report EXAM: Neurological Exam Mental Status Awake, alert and oriented to person, place and time. Oriented to person, place and time. Recent andremote memory are intact. Speech is normal. Language is fluent with no aphasia. Attention and concentration are normal. Cranial Nerves CN II: Visual acuity is normal. Visual tinsley full to confrontation. CN III, IV, : Extraocular movements intact bilaterally. Normal lids and orbits bilaterally. Pupils equal round and reactive to light bilaterally. CN V: Facial sensation is normal. CN VII: Full and symmetric facial movement. CN VIII: Hearing is normal. CN XII: Tongue midline without atrophy or fasciculations. Motor Normal muscle bulk throughout. Normal muscle tone. Right Left Wrist flexion 5 5 Wrist extension 5 5 Right Left Deltoid 5 5 Biceps 5 5 Triceps 5 5 Wrist flexor 5 5 Wrist extensor 5 5 Glutei 5 5 Iliopsoas 5 5 Quadriceps 5 5 Gastrocnemius 5 5 Anterior tibialis 5 5 Posterior tibialis 5 5 Sensory Light touch is normal in upper and lower extremities. Pinprick is normal in upper and lower extremities. Vibration is normal in upper and lower extremities. Reflexes Right Left Brachioradialis 2+ 2+ Biceps 2+ 2+ Patellar 2+ 2+ Achilles 2+ 2+ Right Plantar: downgoing Left Plantar: downgoing Right pathological reflexes: Danielle's absent. Ankle clonus absent. Left pathological reflexes: Danielle's absent. Ankle clonus absent. Coordination Gujrpp-jk-laaw, rapid alternating movements and srtp-is-nyvl normal bilaterally without dysmetria. Gait Normal casual, toe, heel and tandem gait. Romberg is absent. PROCEDURE: NONE ASSESSMENT AND PLAN: Diagnoses and all orders for this visit: Chronic migraine without aura, not intractable, without status migrainosus (CMS/HCC) Carpal tunnel syndrome of right wrist Continue Qulipta for prevention treatment. Ubrelvy as needed for acute treatment. I counseled the patient on the possible side effects and interactions of medications. Total time 20 minutes spent reviewing records, performing medically appropriate exam, counseling , education, ordering medication, tests, and/or procedures, documenting health information into the health record, communicating results to the patient, and coordinating care. Follow up 3-4 months. documented in this encounterL[facility] [id number] History of Present illness Narrative* Hue Guerra LPN - 09/11/2024 4:00 PM EDT Reason for Appointment: Patient ID: Oj Ahmadi is a 44 y.o. female who presents for Well Women Visit Patient presents today for Annual Exam. MEDICATIONS Current Outpatient Medications Medication Instructions cyanocobalamin (Vitamin B-12) 1000 MCG tablet Every 12 hours dexAMETHasone (Decadron) 2 MG tablet 2mg 3 pills po X3 days,2 pills po daily X3 days , then 1 pill po daily X3 days then stop 9 days 18 pills dicyclomine (BENTYL) 20 mg, Oral, 3 times daily eletriptan (RELPAX) 40 mg, Oral, See admin instructions, TAKE 1 TABLET BY MOUTH at onset OF migraine, may repeat once after 2 HOURS (max TWICE DAILY, TWICE A WEEK) MUST LAST 30 DAYS Levonorgestrel (Mirena, 52 MG,) 20 MCG/DAY intrauterine device as directed Intrauterine levothyroxine (SYNTHROID, LEVOXYL) 200 mcg, Oral, Daily levothyroxine (SYNTHROID, LEVOXYL) 25 mcg, Oral, Daily LORazepam (ATIVAN) 0.5 mg, Oral, See admin instructions, 1 by mouth 1 hour prior to MRI, may repeatX 1 dose meloxicam (MOBIC) 15 mg, Oral, Daily saccharomyces boulardii (FLORASTOR) 250 mg, Oral, 2 times daily tiZANidine (Zanaflex) 4 MG tablet Take two (4 mg) tablets at bed. topiramate (Topamax) 200 MG tablet TAKE 1 TABLET BY MOUTH IN THE MORNING and TAKE 2 TABLETS BY MOUTH AT BEDTIME topiramate (TOPAMAX) 200 mg, Oral, See admin instructions, TAKE 1 TABLET BY MOUTH IN THE MORNING, then TAKE 2 TABLETS AT BEDTIME Ubrelvy 100 mg, Oral, Once as needed, MAY TAKE SECOND DOSE AT LEAST 2 HOURS AFTER FIRST DOSE NEEDED AT ONSET OF MIGRAINE. MAX 200MG/DAY ALLERGIES Allergies Allergen Reactions Biotin Other Reaction(s): Unknown Colestipol Other Reaction(s): HIVES PROBLEMS Active Ambulatory Problems Diagnosis Date Noted Acquired hypothyroidism ([facility]) 05/17/2023 Acute confusional migraine ([facility]) 05/17/2023 Migraine with aura ([facility]) 05/17/2023 Asthma ([facility]) 05/17/2023 Benign essential blepharospasm 05/17/2023 Bile reflux gastritis 05/17/2023 Brachial plexus neuropathy 05/17/2023 Chronic migraine without aura, not intractable, without status migrainosus (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 Hiatal hernia 05/17/2023 Irritable bowel syndrome with diarrhea 05/17/2023 Mild intermittent asthma without complication (CMS/HCC) 05/17/2023 Mononeuropathy of right lower extremity 05/17/2023 Morning headache 05/17/2023 Obesity 05/17/2023 Other specific joint derangements of right foot, not elsewhere classified 05/17/2023 Pain in right arm 05/17/2023 Snoring 05/17/2023 Insomnia 08/20/2023 Muscle spasm 08/20/2023 Resolved Ambulatory Problems Diagnosis Date Noted No Resolved Ambulatory Problems Past Medical History: Diagnosis Date Allergic Allergies Anemia atopic 2011 B-complex deficiency Benign intracranial hypertension Breast cancer screening by mammogram Chronic lymphocytic thyroiditis (CMS/HCC) Molly's disease (CMS/HCC) Headache History of being hospitalized Hypersomnia Hypothyroidism (CMS/HCC) Inadequate sleep hygiene Malaise and fatigue Migraine (CMS/HCC) Nausea Obesity (BMI 30.0-34.9) Vitamin D deficiency Well woman exam HISTORY PAST MEDICAL HISTORY SOCIAL HISTORY Past Medical History: Diagnosis Date Allergic ALLERGIC REACTION HIVES Allergies Anemia Asthma (CMS/HCC) atopic 2011 B-complex deficiency Benign intracranial hypertension Breast cancer screening by mammogram Chronic lymphocytic thyroiditis (CMS/HCC) Fatigue Molly's disease (CMS/HCC) Headache History of being hospitalized childbirth Hypersomnia Hypothyroidism (CMS/HCC) Inadequate sleep hygiene Malaise and fatigue Migraine (CMS/HCC) Nausea Obesity (BMI 30.0-34.9) Vitamin D deficiency Well woman exam Social History Tobacco Use Smoking status: Former Current packs/day: 0.00 Average packs/day: 1.5 packs/day for 20.0 years (30.0 ttl pk-yrs) Types: Cigarettes Start date: 10/02/1999 Quit date: 10/02/2019 Years since quittin.9 Smokeless tobacco: Never Substance Use Topics Alcohol use: Not Currently Drug use: Never FAMILY HISTORY Family History Problem Relation Name Age of Onset Diabetes Mother Milagros Hypertension Mother Milagros Hyperlipidemia Mother Milagros Heart disease Mother Milagros Mental illness Mother Milagros Other (cancer) Mother Milagros Cancer Mother Milagros Stroke Mother Milagros Heart disease Father Enrioc Ahmadi Lung cancer Father Enrico Ahmadi Accidental Brother Luis Ahmadi Drug abuse Brother Luis Ahmadi Hypertension Maternal Grandmother Milagros Barahona Mental illness Sibling SURGICAL HISTORY Past Surgical History: Procedure Laterality Date COLECTOMY 2010 OTHER SURGICAL HISTORY 2010 STERIODS & D'C COLESTIPOL;Disease:ALLERGIC REACTION HIVES MI REMOVAL OF FALLOPIAN TUBE Left 06/2012 removal of left fallopian tube;Disease:atopic REVIEW OF SYSTEMS Review of Systems: Review of Systems All other systems reviewed and are negative. OBJECTIVE Objective: Physical Exam Constitutional: Appearance: Normal appearance. She is well-developed. Genitourinary: Vulva normal. Breasts: Breasts are soft. Right: Normal. Left: Normal. Cardiovascular: Rate and Rhythm: Normal rate and regular rhythm. Pulmonary: Effort: Pulmonary effort is normal. Breath sounds: Normal breath sounds. Abdominal: General: Bowel sounds are normal. There is no distension. Palpations: Abdomen is soft. Tenderness: There is no abdominal tenderness. There is no guarding or rebound. Musculoskeletal: General: No swelling. Normal range of motion. Right lower leg: No edema. Left lower leg: No edema. Neurological: Mental Status: She is alert and oriented to person, place, and time. Skin: General: Skin is warm and dry. Psychiatric: Mood and Affect: Mood normal. Behavior: Behavior normal. Vitals and nursing note reviewed. Exam conducted with a brusher warp present. Vitals: Estimated body mass index is 27.72 kg/m as calculated from the following: Height as of 03/15/24: 5' 5.5 . Weight as of this encounter: 169 lb 1.9 oz. BP: 118/80 No LMP recorded. Patient has had an implant. ASSESSMENT & PLAN ICD-10-CM 1. Well woman exam with routine gynecological exam Z01.419 THIN PREP TIS PAP AND HR HPV DNA Annual: Patient presents today for an annual exam. Patient states she is doing well and has no complaints. Pap was obtained without difficulty and patient given mammogram order to have scheduled/obtained. Follow Up: Patient is to return in one year for annual unless needed otherwise. Documented by Hue Guerra LPN on behalf of: Ankita Scott DO documented in this encounterLake Regional Health [id number] History of Present illness Narrative* Donny Hollingsworth MD - 12/23/2023 3:30 PM EST Subjective Patient ID: Oj Ahmadi is a 43 y.o. female who presents for Annual Exam. When pt works out her right knee will swell up, IBS is flaring up Current Outpatient Medications on File Prior to Visit Medication Sig Dispense Refill cyanocobalamin (Vitamin B-12) 1000 MCG tablet every 12 (twelve) hours. dexAMETHasone (Decadron) 2 MG tablet 2mg 3 pills po X3 days,2 pills po daily X3 days , then 1 pill po daily X3 days then stop 9 days 18 pills 18 tablet 1 eletriptan (Relpax) 40 MG tablet Take 1 tablet (40 mg) by mouth See administration instructions TAKE 1 TABLET BY MOUTH at onset OF migraine, may repeat once after 2 HOURS (max TWICE DAILY, TWICE A WEEK) MUST LAST 30 DAYS 6 tablet 3 Levonorgestrel (Mirena, 52 MG,) 20 MCG/DAY intrauterine device as directed Intrauterine levothyroxine (Synthroid, Levoxyl) 200 MCG tablet TAKE 1 TABLET BY MOUTH ONCE DAILY 100 tablet 3 levothyroxine (Synthroid, Levoxyl) 25 MCG tablet TAKE 1 TABLET BY MOUTH ONCE DAILY 100 tablet 3 Qulipta 60 MG tablet Take 1 tablet by mouth in the morning. saccharomyces boulardii (Florastor) 250 MG capsule Take 250 mg by mouth in the morning and 250 mg before bedtime. tiZANidine (Zanaflex) 4 MG tablet Take 1 tablet (4 mg) by mouth at bedtime. 30 tablet 11 topiramate (Topamax) 200 MG tablet Take 200 mg by mouth See administration instructions. TAKE 1 TABLET BY MOUTH IN THE MORNING, then TAKE 2 TABLETS AT BEDTIME topiramate (Topamax) 200 MG tablet TAKE 1 TABLET BY MOUTH IN THE MORNING then TAKE 2 TABLETS BY MOUTH AT BEDTIME 90 tablet 11 Ubrelvy 100 MG tablet See administration instructions. TAKE 1 TABLET BY MOUTH . MAY TAKE SECOND DOSE AT LEAST 2 HOURS AFTER FIRST DOSE NEEDED AT ONSET OF MIGRAINE. MAX 200MG/DAY [DISCONTINUED] dicyclomine (Bentyl) 20 MG tablet TAKE 1 TABLET BY MOUTH THREE TIMES DAILY 90 tablet5 [DISCONTINUED] eletriptan (Relpax) 40 MG tablet 40 mg See administration instructions. TAKE 1 TABLET BY MOUTH at onset OF migraine, may repeat once after 2 HOURS (max TWICE DAILY, TWICE A WEEK) MUST LAST 30 DAYS No current facility-administered medications on file prior to visit. Allergies Allergen Reactions Acetaminophen-Caffeine Other Reaction(s): Unknown Biotin Other Reaction(s): Unknown Colestipol Other Reaction(s): HIVES Ibuprofen Other Reaction(s): Unknown Social History Tobacco Use Smoking status: Former Packs/day: 1.50 Years: 20.00 Additional pack years: 0.00 Total pack years: 30.00 Types: Cigarettes Quit date: 10/02/2019 Years since quittin.2 Smokeless tobacco: Never Substance Use Topics Alcohol use: Not Currently Drug use: Never Family History Problem Relation Name Age of Onset Diabetes Mother Milagros Hypertension Mother Milagros Hyperlipidemia Mother Milagros Heart disease Mother Milagros Mental illness Mother Milagros Other (cancer) Mother Milagros Cancer Mother Milagros Stroke Mother Milagros Heart disease Father Enrico Ahmadi Lung cancer Father Enrico Ahmadi Accidental Brother Luis Ahmadi Drug abuse Brother Luis Ahmadi Hypertension Maternal Grandmother Milagros Ball Mental illness Sibling Past Medical History: Diagnosis Date Allergic ALLERGIC REACTION HIVES Allergies Anemia Asthma (CMS/HCC) atopic 2011 B-complex deficiency Benign intracranial hypertension Breast cancer screening by mammogram Chronic lymphocytic thyroiditis (CMS/HCC) Fatigue Molly's disease (CMS/HCC) Headache History of being hospitalized childbirth Hypersomnia Hypothyroidism (CMS/HCC) Inadequate sleep hygiene Malaise and fatigue Migraine (CMS/HCC) Nausea Obesity (BMI 30.0-34.9) Vitamin D deficiency Well woman exam Past Surgical History: Procedure Laterality Date COLECTOMY 2010 OTHER SURGICAL HISTORY 2010 [facility] D[facility] COLESTIPOL;Disease:ALLERGIC REACTION HIVES MI REMOVAL OF FALLOPIAN TUBE Left 06/2012 removal of left fallopian tube;Disease:atopic Visit Vitals BP 102/68 Pulse 75 Wt 170 lb SpO2 98% BMI 27.86 kg/m Smoking Status Former BSA 1.89 m Review of Systems Constitutional: Negative for chills, fatigue and fever. HENT: Positive for congestion, rhinorrhea, sinus pressure and sinus pain. Negative for ear pain andsore throat. Respiratory: Negative for cough, shortness of breath and wheezing. Cardiovascular: Negative for chest pain and palpitations. Gastrointestinal: Negative for abdominal pain, constipation, diarrhea, nausea and vomiting. Musculoskeletal: Positive for arthralgias and joint swelling. Objective Physical Exam Constitutional: General: She is not in acute distress. Appearance: Normal appearance. She is well-developed. HENT: Head: Normocephalic and atraumatic. Right Ear: Tympanic membrane and ear canal normal. Left Ear: Tympanic membrane and ear canal normal. Nose: Congestion present. Mouth/Throat: Mouth: Mucous membranes are moist. Pharynx: Posterior oropharyngeal erythema present. Eyes: General: No scleral icterus. Conjunctiva/sclera: Conjunctivae normal. Neck: Thyroid: No thyromegaly. Cardiovascular: Rate and Rhythm: Normal rate and regular rhythm. Heart sounds: Normal heart sounds. No murmur heard. Pulmonary: Effort: Pulmonary effort is normal. No respiratory distress. Breath sounds: Normal breath sounds. No wheezing, rhonchi or rales. Musculoskeletal: Right knee: Swelling, effusion and crepitus present. Normal range of motion. No LCL laxity, MCL laxity, ACL laxity or PCL laxity. Normal alignment. Lymphadenopathy: Cervical: No cervical adenopathy. Skin: General: Skin is warm and dry. Neurological: General: No focal deficit present. Mental Status: She is alert and oriented to person, place, and time. Psychiatric: Mood and Affect: Mood normal. Behavior: Behavior normal. Assessment/Plan Diagnoses and all orders for this visit: Wellness examination - No labs are due presently. - Due for mammograms, ordered. Irritable bowel syndrome with diarrhea - dicyclomine (Bentyl) 20 MG tablet; Take 1 tablet (20 mg) by mouth in the morning and 1 tablet (20mg) in the evening and 1 tablet (20 mg) before bedtime. Effusion of right knee - Ambulatory referral to Orthopaedic Surgery; Future Acute sinusitis, recurrence not specified, unspecified location - erythromycin ethylsuccinate (E.E.S.) 400 MG tablet; Take 1 tablet (400 mg) by mouth in the morning and 1 tablet (400 mg) at noon and 1 tablet (400 mg) in the evening and 1 tablet (400 mg) before bedtime. Do all this for 10 days. Follow up in about 1 year (around 12/23/2024) for Wellness. [facility]* Diagnosis Wellness examination- Primary Irritable bowel syndrome with diarrhea Irritable bowel syndrome Effusion of right knee Acute sinusitis, recurrence not specified, unspecified location documented in this encounter [facility] HealthcareEvaluation note* Diagnosis Well woman exam with routine gynecological exam Routine gynecological examination documented in this encounter [facility] HealthcareEvaluation note* Diagnosis Chronic migraine without aura, not intractable, without status migrainosus (CMS/HCC)- Primary Carpal tunnel syndrome of right wrist documented in this encounter [facility] HealthcareEvaluation note* Diagnosis Insomnia, unspecified type Muscle spasm Spasm of muscle Intractable migraine with aura with status migrainosus (CMS/HCC) Migraine with aura, with intractable migraine, so stated, with status migrainosus Difficulty in walking, not elsewhere classified Disturbance of skin sensation documented in this encounter [facility] HealthcareEvaluation note* Diagnosis Insomnia, unspecified type Muscle spasm Spasm of muscle Intractable migraine with aura with status migrainosus (CMS/HCC) Migraine with aura, with intractable migraine, so stated, with status migrainosus Difficulty in walking, not elsewhere classified Disturbance of skin sensation documented in this encounter [facility] HealthcareEvaluation note* Diagnosis Wellness examination- Primary Encounter for screening mammogram for breast cancer Benign essential blepharospasm Irritable bowel syndrome with diarrhea Irritable bowel syndrome Acquired hypothyroidism (CMS/HCC) Unspecified hypothyroidism Mild intermittent asthma without complication (CMS/HCC) documented in this encounter [facility] HealthcareEvaluation note* Diagnosis Chronic migraine without aura, not intractable, without status migrainosus (CMS/HCC) documented in this encounter [facility] HealthcareEvaluation note* Diagnosis Chronic migraine without aura, not intractable, without status migrainosus [facility] HealthcareReason for referral (narrative)* Consultation (Routine) - Pending ReviewSpecialtyDiagnoses / ProceduresReferred By ContactReferred To Contact Orthopaedic Surgery Diagnoses Effusion of right knee Donny Hollingsworth MD [address] [facility] [address] [place] [address] Dano Chapman DO [address] [facility] [address] [place] [address] Referral IDStatusReasonStart DateExpiration DateVisits RequestedVisits [id number] Review Specialty Services Required [facility] Summary Purpose Family History No Family History Records FoundNo Family History Records FoundNo Family History Records FoundNo Family History Records Found Advance Directives No Advanced Directives Records FoundNo Advanced Directives Records FoundNo Advanced Directives Records FoundNo Advanced Directives Records Found Additional Source Comments INFORMATION SOURCE (unrecogn ized section and content) DATE CREATED AUTHOR 02/12/2022 [facility] [employer] DATE CREATED AUTHOR AUTHOR'S ORGANIZ ATION 09/01/2022 [facility] DATE CREATED AUTHOR AUTHOR'S ORGANIZ ATION 03/28/2025 [facility] DATE CREATED AUTHOR AUTHOR'S ORGANIZ ATION 08/07/2025 [facility] EPIC Reason for Visit (unrecogniz ed section and content) ReasonCommentsAnnual ExamReasonCommentsWell Women VisitReasonCommentsMed Refill ReasonCommentsAnnual ExamMed RefillBentyl--DM clydeReasonCommentsMigraine Insomnia Care Teams (unrecognized sec tion and content) Team MemberRelationshipSpecialtyStart DateEnd Date Donny Hollingsworth MD [address] [facility] [address] [place] [address] PCP - GeneralInternal Medicine03/30/23Team MemberRelationshipSpecialtyStart Date End Date Donny Hollingsworth MD [address] [facility] [address] [place] [address] PCP - GeneralInternal Medicine03/30/23Team MemberRelationshipSpecialtyStart Date End Date Donny Hollingsworth MD [address] [facility] [address] [place] [address] PCP - GeneralInternal Medicine03/30/23Team MemberRelationshipSpecialtyStart Date End Date Donny Hollingsworth MD [address] [facility] [address] [place] [address] PCP - GeneralInternal Medicine03/30/23am MemberRelationshipSpecialtyStart Date End Date Donny Hollingsworth MD [address] [facility] [address] [place] [address] PCP - GeneralInternal Medicine03/30/23am MemberRelationshipSpecialtyStart Date End Date Donny Hollingsworth MD [address] [facility] [address] [place] [address] PCP - GeneralInternal Medicine03/30/23am MemberRelationshipSpecialtyStart Date End Date Donny Hollingsworth MD [address] [facility] [address] [place] [address] PCP - GeneralInternal Medicine03/30/23am MemberRelationshipSpecialtyStart Date End Date Donny Hollingsworth MD [address] [facility] [address] [place] [address] PCP - GeneralInternal Medicine03/30/23am MemberRelationshipSpecialtyStart Date End Date Donny Hollingsworth MD [address] [facility] [address] [place] [address] PCP - GeneralInternal Medicine03/30/23am MemberRelationshipSpecialtyStart Date End Date Donny Hollingsworth MD [address] [facility] [address] [place] [address] PCP - GeneralInternal Medicine03/30/23am MemberRelationshipSpecialtyStart Date End Date Donny Hollingsworth MD [address] [facility] [address] [place] [address] PCP - GeneralInternal Medicine03/30/23Team MemberRelationshipSpecialtyStart Date End Date Donny Hollingsworth MD [address] [facility] [address] [place] [address] PCP - GeneralInternal Medicine03/30/23Te MemberRelationshipSpecialtyStart Date End Date Donny Hollingsworth MD [address] [facility] [address] [place] [address] PCP - GeneralInternal [facility]03/30/23Te MemberRelationshipSpecialtyStart Date End Date Donny Hollingsworth MD [address] [facility] [address] [place] [address] PCP - GeneralInternal [facility]03/30/23 FOR RECORDS PERTAINING TO PATIENTS WHO ARE OR HAVE BEEN ENROLLED IN A CHEMICAL DEPENDENCY/SUBSTANCEABUSE PROGRAM, SOME INFORMATION MAY BE OMITTED. This clinical summary was aggregated from multiple sources. Caution should be exercised in using it in the provision of clinical care. This summary normalizes information from multiple sources, and as a consequence, information in this document may materially change the coding, format and clinical context of patient data. In addition, data may be omitted in some cases. CLINICAL DECISIONS SHOULD BE BASED ON THE PRIMARY CLINICAL RECORDS. [facility] [employer]. provides no warranty or guarantee of the accuracy or completeness of information in this document.
[2025-09-18 15:09] LABS: Age Gdln ACOG Testing Note (.); IGP, Aptima HPV, rfx 16/18,45 Note (.)
== END 2025-09-12 20:25 | disposition home or self-care (01) ==
LOC: LAB 20:24
PROVIDERS: Visit Provider Obstetrics & Gynecology
DX: Z01.419 Encounter for gynecological examination (general) (routine) without abnormal findings (principal)
CPT/HCPCS: 87624; 88175